=== PATIENT | female | born 1960 | race Caucasian/White ===

== ENCOUNTER 2022-06-17 08:17 | Observation (INO) ==
[2022-06-17] MEDS ORDERED: dilTIAZem HCl 5 MG/ML 5 ML VIAL IV STA (08:53)
[2022-06-17] MEDS ORDERED: STAT IV Infusion **Titration per Protocol STA (08:53)
--- NOTE | 2022-06-17 08:58 | Emergency Department Note ---
Impression & Plan Atrial fibrillation, new onset, Chest pain ED Provider Note NAME: TATIANA CHO AGE: 61 SEX: F : 1960 ARRIVES VIA: Walk-In INFORMANT: Patient ED PROVIDER(S): Otis Carbajal DO CHIEF COMPLAINT: palpitations HPI: Patient is a 61-year-old female who presents the ER for palpitations. She notes this is been going off and on for the past 4 months. It has been constant for at least the past 4 days. Denies any chest pain or shortness of breath. Does feel her heart racing. Gets very diaphoretic intermittently feels like she is going to pass out. No belly pain nausea vomiting or diarrhea. No dysuria urgency or frequency. No other exacerbating or remitting factors. PAST MEDICAL HISTORY:See Below PAST SURGICAL HISTORY:See Below FAMILY HISTORY:See Below SOCIAL HISTORY:See Below HOME MEDICATIONS:See Below ALLERGIES:See Below VITALS:See Below PHYSICAL EXAMINATION: GENERAL: Sitting up in bed, alert, well appearing, well nourished, no distress, non-toxic EYE EXAM: normal conjunctiva. OROPHARYNX: no exudate, no erythema, lips, buccal mucosa, and tongue normal and mucous membranes are moist NECK: supple, no nuchal rigidity, no adenopathy, non-tender LUNGS: Clear to auscultation. Normal chest wall mechanics HEART: Tachycardic, S1 normal and S2 normal ABDOMEN: abdomen soft, non-tender, normo-active bowel sounds, no masses, no rebound or guarding. UPPER EXTREMITIES: upper extremities are grossly normal. LOWER EXTREMITIES: No pitting edema. NEURO EXAM: Normal sensorium, cranial nerves II-XII grossly intact, normal speech, no gross weakness of arms, no gross weakness of legs. Triage Nursing notes reviewed. Limited review of prior medical records performed Vital Signs: reviewed and remarkable for tachy Differential diagnosis: Cardiac ischemia, aortic dissection, pulmonary embolism, pneumothorax, pneumoni a, pericarditis, myocarditis, esophageal rupture, GERD, cholecystitis, pancreatitis, musculoskeletal, as well as other pathologies. Labs show no significant leukocytosis or anemia. BMP shows no metabolic acidosis. LFTs bilirubin was unremarkable. Troponin was negative not indicative of ACS. Lip ase normal. COVID-negative. Chest x-ray without infiltrate per my read. EKG consistent with A. fib with RVR per my read. Patient was placed on Cardizem drip and given a bolus. Heart rate trended down. Updated bedside. Discussed with the hospitalist admitted for further work up with Dr. velasquez. Also discussed with Tj who is going to see the patient as well in regards to the patient presentation and treatment. ER treatment provided: See below MEDICAL DECISION MAKING: Patient is a 61-year-old female who presents the ER for the above-stated complaint. She currently does not have a primary care doctor/provider. No records to review. IV was established blood work was obtained. Consultation(s): As described above in [facility] ER treatment provided: See below Diagnostics interpreted by me: -ECG: A. fib rate of 142 Normal axis No PVCs QTC 449 -Cardiac Monitoring: An order was placed for continuous cardiac monitoring. The monitor shows a rate of 144 with Afib rhythm. -Laboratory studies:As stated above and show below. -Imaging studies: Portable AP upright 1 view of the chest per my read shows no focal infiltrate Procedures:none Critical Care: I have personally spent 32 minutes of critical care time in the direct management of this patient. This includes bedside care, interpretation of diagnostic studies, and testing, discussion with consultants, patient, and family members, and other required patient management activities. This 32 minutes is in excess of all separately billable procedures. Past Med/Surg History Medical History Dysuria Frostbite Malaise and fatigue Orthostatic hypotension Syncope and collapse Surgical History H/O ovarian cystectomy History of arthroscopic knee surgery torn meniscus right knee 2008 S/P total abdominal hysterectomy about 1991 for extensive endometriosis Family History Father Diabetes Heart disease Hypertension Lung disease Myocardial infarction Brother Diabetes Hypertension Denies family history of Ovarian cancer Prostate cancer Breast cancer Colorectal cancer Social History Smoking Status: Current every day smoker Age Started Using Tobacco: 39; packs per day: 0.5; Second Hand Exposure: Yes; Hx Alcohol Use: Yes Hx Substance Use: No Visual Impairment: No Limitations Hearing Ability: Normal marital status: marital status details: Currently engaged Current Living Situation: Spouse and Other Current Living Situation Comment: Lives with fiance current occupational status: employed 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 Feels Safe at Home: Yes Dental Care, Regularly: No Physical Activity Frequency: Daily Allergies Allergies Allergy/AdvReac Type Severity Reaction Status Date / Time latex Allergy Unknown rash Verified 06/17/22 11:24 SURGICAL BANDAGES Allergy Unknown RASH Uncoded 05/19/19 08:14 Home Meds Home Medications Medication Instructions Recorded Confirmed No Known Home Medications 06/17/22 06/17/22 Results & Data (ED) Vital Signs Vital Signs - 24 hr 06/17/22 08:30 06/17/22 09:00 06/17/22 09:02 Temperature 36.7 C Temperature Source Temporal Artery Scan Pulse Rate 102 H Pulse Rate [Apical] Pulse Rhythm Regular Pulse Rhythm [Apical] Pulse Strength Normal Respiratory Rate 20 Respiratory Effort / Characteristics Non-Labored Spontaneous Respiratory Depth Normal Respiratory Pattern Regular Blood Pressure Blood Pressure [Right Arm] Blood Pressure Mean Blood Pressure Mean [Right Arm] Blood Pressure Position [Right Arm] Pulse Oximetry 96 99 99 Oxygen Delivery Method Room Air Room Air Room Air Sepsis Recent Fever Within 48 Hours No Sepsis New/Unexplained Change in Mental Status N/A Sepsis Action Taken by Nursing No Action Required 06/17/22 09:01 06/17/22 09:30 06/17/22 10:00 Temperature Temperature Source Pulse Rate 142 H Pulse Rate [Apical] 97 H 120 H Pulse Rhythm Pulse Rhythm [Apical] Irregular Pulse Strength Respiratory Rate 15 18 16 Respiratory Effort / Characteristics Respiratory Depth Normal Normal Respiratory Pattern Blood Pressure 139/85 Blood Pressure [Right Arm] 127/89 126/91 Blood Pressure Mean 103 Blood Pressure Mean [Right Arm] 101 102 Blood Pressure Position [Right Arm] Lying Lying Pulse Oximetry 99 99 96 Oxygen Delivery Method Room Air Room Air Room Air Sepsis Recent Fever Within 48 Hours Sepsis New/Unexplained Change in Mental Status Sepsis Action Taken by Nursing 06/17/22 10:34 06/17/22 11:00 Temperature Temperature Source Pulse Rate Pulse Rate [Apical] 91 H 84 Pulse Rhythm Pulse Rhythm [Apical] Regular Pulse Strength Respiratory Rate 16 18 Respiratory Effort / Characteristics Respiratory Depth Normal Normal Respiratory Pattern Blood Pressure Blood Pressure [Right Arm] 116/83 112/84 Blood Pressure Mean Blood Pressure Mean [Right Arm] 94 93 Blood Pressure Position [Right Arm] Lying Pulse Oximetry 97 99 Oxygen Delivery Method Room Air Sepsis Recent Fever Within 48 Hours Sepsis New/Unexplained Change in Mental Status Sepsis Action Taken by Nursing Laboratory Data 06/17/22 08:53 06/17/22 08:53 Lab Results 06/17/22 06/17/22 Range/Units 08:53 08:53 WBC 9.34 (4.8-10.8) K/ul RBC 4.67 (3.93-5.22) M/uL Hgb 15.0 (12.0-16.0) g/dl Hct 44.3 (34.1-44.9) % MCV 94.9 (80.0-100.0) fL MCH 32.1 (25.0-34.0) pg MCHC 33.9 (32.0-36.0) g/dL RDW Std Deviation 48.4 H (36.4-46.3) fL RDW Coeff of Maria Elena 13.9 (11.5-14.5) % Plt Count 348 (130-400) K/uL MPV 9.3 L (9.4-12.3) fL Immature Gran % (Auto) 0.2 % Neut % (Auto) 68.4 % Lymph % (Auto) 21.0 % [place] % (Auto) 7.4 % Eos % (Auto) 1.8 % Baso % (Auto) 1.2 % Neut # (Auto) 6.39 (1.4-6.5) K/uL Lymph # (Auto) 1.96 (1.2-3.4) K/uL [place] # (Auto) 0.69 (0.24-0.82) K/uL Eos # (Auto) 0.17 (0-0.50) K/uL Baso # (Auto) 0.11 (0-0.2) K/uL Immature Gran # (Auto) 0.02 (0.00-0.02) K/uL Sodium 137 (136-145) mmol/L Potassium 4.1 (3.5-5.1) mmol/L Chloride 103 (98-107) mmol/L Carbon Dioxide 28 (21-32) mmol/L Anion Gap 6 (3-11) BUN 23 (6-23) mg/dl Creatinine 0.88 (0.6-1.2) mg/dl Est Cr Clr Drug Dosing 57.5 ml/min Est GFR ( Amer) 82.8 ml/min Est GFR (Non-Af Amer) 71.4 ml/min BUN/Creatinine Ratio 26.1 H (10-20) Glucose 114 H (70-99(Fasting)) mg/dl Calcium 8.9 (8.5-10.1) mg/dl Total Bilirubin 0.7 (0.2-1.0) mg/dl AST 21 (13-39) U/L ALT 11 (7-52) U/L Alkaline Phosphatase 66 (34-104) U/L Troponin I High Sens 3.2 (0-14) pg/ml Total Protein 7.5 (6.0-8.3) gm/dl Albumin 4.3 (3.4-5.0) gm/dl Globulin 3.2 (2.5-4.0) gm/dl Albumin/Globulin Ratio 1.3 (0.9-2) Lipase 18 (11-82) U/L Administered Medications Diltiazem HCl 125 mg/ Dextrose 125 mls @ 10 mls/hr IV .[id number] [facility]; Protocol Stop: 07/17/22 08:59 Last Titration: 06/17/22 10:09 Dose: 10 mg/hr, 10 mls/hr Documented By: ARCHIE Co-signed By: MARLENI Admin: 06/17/22 09:10 Dose: 5 mg/hr, 5 mls/hr Documented By: ARCHIE Co-signed By: MARLENI Heparin Sodium/Dextrose (Heparin Sodium/Dextrose) 25,000 units in 500 mls @ 19 mls/hr IV .Q24H [facility]; Protocol Stop: 07/17/22 11:44 Last Admin: 06/17/22 12:13 Dose: 950 units/hr, 19 mls/hr Documented By: MARLENI Co-signed By: ARCHIE Discontinued Medications Diltiazem HCl (Diltiazem Hcl 5 Mg/Ml 5 Ml Vial) 10 mg IV NOW STA Stop: 06/17/22 08:54 Last Admin: 06/17/22 09:09 Dose: 10 mg Documented By: ARCHIE Co-signed By: MARLENI Miscellaneous (Stat Iv Infusion Titration Per Protocol) 1 each N/A NOW STA Stop: 06/17/22 08:54 Last Admin: 06/17/22 09:12 Dose: Not Given Documented By: ARCHIE Imaging Data Radiologist's Impression: Chest X-Ray 06/17/22 08:41 XR chest 1V portable CLINICAL HISTORY: Chest pain, nonspecific TECHNIQUE: Single frontal radiograph of the chest was obtained. Comparison: None available at the time of this dictation. FINDINGS: No lines and tubes are seen. The cardiomediastinal silhouette is normal. The lungs are clear. No evidence of pleural effusion or pneumothorax. IMPRESSION: No acute chest disease. ACT 112: Negative or not required by law. Electronically signed by: Joe Rdz M.D. 06/17/2022 9:19 AM Discharge Plan Visit Data Chief Complaint: Cardiac Assessment Stated Complaint: CHEST PAIN, PALPITATIONS, SWEATS ED Provider: Otis Carbajal Discharge Problem: Atrial fibrillation, new onset, Chest pain Patient Disposition: Admitted As Inpatient Discharge Instructions Interventions: ED Discharge Assessment Last Done: 06/17/22 12:35
[2022-06-17] MEDS ORDERED: dilTIAZem HCL 125 MG in DEXTROSE 5% 100 ML IV SCH (09:00)
[2022-06-17 09:03] LABS: Basophils # (auto) 0.11 K/uL (0-0.2); Basophils % (auto) 1.2 %; Eosinophils # (auto) 0.17 K/uL (0-0.50); Eosinophils % (auto) 1.8 %; Hematocrit (blood only) 44.3 % (34.1-44.9); Immature Granulocytes # (auto) 0.02 K/uL (0.00-0.02); Immature Granulocytes % (auto) 0.2 %; Lymphocytes # (auto) 1.96 K/uL (1.2-3.4); Mean Corpuscular Hemoglobin 32.1 pg (25.0-34.0); Mean Corpuscular Hgb Conc 33.9 g/dL (32.0-36.0); Mean Corpuscular Volume 94.9 fL (80.0-100.0); Mean Platelet Volume 9.3 fL (9.4-12.3); Monocytes # (auto) 0.69 K/uL (0.24-0.82); Monocytes % (auto) 7.4 %; Neutrophils # (auto) 6.39 K/uL (1.4-6.5); Neutrophils % (auto) 68.4 %; Platelet Count 348 K/uL (130-400); RDW Coefficient of Variation 13.9 % (11.5-14.5); RDW Standard Deviation 48.4 fL (36.4-46.3); Red Blood Count 4.67 M/uL (3.93-5.22); White Blood Count 9.34 K/ul (4.8-10.8)
--- NOTE | 2022-06-17 09:20 | XRay Report ---
XR chest 1V portable CLINICAL HISTORY: Chest pain, nonspecific TECHNIQUE: Single frontal radiograph of the chest was obtained. Comparison: None available at the time of this dictation. FINDINGS: No lines and tubes are seen. The cardiomediastinal silhouette is normal. The lungs are clear. No evid ence of pleural effusion or pneumothorax. IMPRESSION: No acute chest disease. ACT 112: Negative or not required by law. Electronically signed by: Joe Rdz M.D. 06/17/2022 9:19 AM
[2022-06-17 09:25] LABS: Albumin Globulin Ratio 1.3 (0.9-2); Albumin Level 4.3 gm/dl (3.4-5.0); BUN Creatinine Ratio 26.1 (10-20); Bilirubin,Total 0.7 mg/dl (0.2-1.0); Calcium 8.9 mg/dl (8.5-10.1); Creatinine Clr Calc Pharmacy 57.5 ml/min; Est GFR (African American) 82.8 ml/min; Est GFR (Non-African American) 71.4 ml/min; Globulin 3.2 gm/dl (2.5-4.0); Potassium 4.1 mmol/L (3.5-5.1); Total Protein 7.5 gm/dl (6.0-8.3)
[2022-06-17 09:29] LABS: Troponin I High Sensitivity 3.2 pg/ml (0-14)
[2022-06-17] MEDS ORDERED: Heparin IV Adult Wt-Based Standard *NO* Bolus Protocol IV ONE (11:20)
[2022-06-17] MEDS ORDERED: HEPARIN SODIUM/DEXTROSE 25,000 UNITS/500 ML BAG IV SCH (11:45)
--- NOTE | 2022-06-17 12:15 | History & Physical Report ---
Date of Service June 17, 2022 Assessment & Plan (1) Atrial fibrillation, new onset: Plan: 61-year-old female without prior significant past medical history presenting in new onset A. fib with presyncopal symptoms and associated diaphoresis requiring inpatient evaluation for medication adjustments and cardiac work-up prior to discharge. * Presents with A. fib with RVR on EKG. She has associated diaphoresis and presyncope. Per the patient, she has had intermittent symptoms for the last at least 4 months. She states that her symptoms typically last about 1 to 2 hours and resolved. Today symptoms are more intense which prompted her visit today. * Patient symptoms likely represent paroxysmal A. fib. * Initially received diltiazem bolus followed by drip. Rate significantly improved. At the time of my evaluation, the patient converted to normal sinus rhythm. * She had received heparin bolus and drip prior to my evaluation. In conversation with the patient, she is extremely active and works multiple jobs. Additionally, she has not been consistent with previous primary care visits, etc. I am uncertain the patient will do well with any anticoagulation therapy, frankly, but she may do better with a NOAC. [id number] 2 score 1. Will defer to cardiology and appreciate their input. * Remains on low-dose diltiazem drip. It is with hopes that the patient can be transitioned to an oral beta-devonte with rate control which may be more tolerable for the patient in the long run. * Discussed that she will need to follow-up with PCP and cardiology postdischarge. * Encourage smoking cessation. * Echo to be obtained. * Troponins to be trended. * Monitor on telemetry. * Appreciate cardiology consultation. (2) Paroxysmal atrial fibrillation: Plan: * Please see above (3) Tobacco abuse: Plan: * Encourage smoking cessation. History of Present Illness Chief Complaint: Palpitations, Dizziness Primary Care Provider: NO PCP Patient is a pleasant 61-year-old female with no reported significant past medical history who presented to the emergency department today with palpitations and dizziness as well as diaphoresis which occurred suddenly this morning after having a cigarette. She admits that she has been experiencing intermittent palpitations with diaphoresis for the last 4 months or so. She reports that these episodes typically last approximately 1 to 2 hours and then antony without intervention. She has noticed that after activity, she has had palpitations to the point where she has felt as though she was going to passout. She has not been evaluated to this point. Unfortunately, today, her significant other found her bent over and presyncopal with the onset of palpitations which prompted visit to the emergency department today. She reports that her symptoms have improved with medication in the emergency department. She denies any prior evaluation for this in the past. While I was in the room, the patient converted to normal sinus rhythm. She reports resolved symptoms to this point. Patient's EKG on presentation demonstrated A. fib with RVR with a rate in the 140s. Troponin was not elevated. No significant electrolyte derangements noted. Chest x-ray without acute findings. Patient has an approximate [id number] history of smoking. She drinks coffee daily. Occasional alcohol use. No other stimulant use. Allergies Allergy/AdvReac Type Severity Reaction Status Date / Time latex Allergy Unknown rash Verified 06/17/22 11:24 SURGICAL BANDAGES Allergy Unknown RASH Uncoded 05/19/19 08:14 Home Medications Medication Instructions Recorded Confirmed Type metoprolol tartrate 25 mg tablet 25 mg PO BID #60 tabs 06/17/22 Rx Past Med/Surg History Medical History Dysuria Frostbite Malaise and fatigue Orthostatic hypotension Syncope and collapse Surgical History H/O ovarian cystectomy History of arthroscopic knee surgery torn meniscus right knee 2008 S/P total abdominal hysterectomy about 1991 for extensive endometriosis Family History Father Diabetes Heart disease Hypertension Lung disease Myocardial infarction Brother Diabetes Hypertension Denies family history of Ovarian cancer Prostate cancer Breast cancer Colorectal cancer Social History Smoking Status: Current every day smoker Age Started Using Tobacco: 39; packs per day: 0.5; Second Hand Exposure: No; Hx Alcohol Use: No Hx Substance Use: No Preferred Language: Telugu Communication Ability: Effective Visual Impairment: No Limitations Hearing Ability: Normal 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 All else were negative. Physical Exam Physical Exam: VITAL SIGNS - Vital signs and nursing notes were reviewed. GENERAL - 61-year-old female appearing her stated age who is in no acute distress. Communicates well with provider and answers questions appropriately. HEAD - NC/AT. EYES - PERRL with EOMI bilaterally. Sclera anicteric. EARS - No deformities of external structures noted on gross examination bilaterally. NOSE - Midline and without cyanosis. No epistaxis or purulent drainage noted. MOUTH/OROPHARYNX - Without perioral cyanosis. NECK - Neck with FROM. LUNGS - Chest wall symmetric without accessory muscle use, intercostals retractions, or central cyanosis. Normal vesicular breath sounds CTA B/L. No wheezes, rales, or rhonchi appreciated. CARDIAC - RRR with S1/S2. No murmur, rubs, or gallops appreciated. No reproducible tenderness to palpation appreciated over the anterior chest wall. ABDOMEN - Abdominal contour flat without pulsations or visible masses. BS normoactive all four quadrants. No tenderness, palpable masses, hepatosplenomegaly, or ascites noted. EXTREMITIES - No clubbing or peripheral cyanosis. No pretibial edema present. +3/5 radial and dorsalis pedis pulses palpated throughout. +5/5 strength noted in UE/LE bilaterally. NEUROLOGIC - Cranial nerves II through XII grossly intact. Sensory intact to light touch throughout. PSYCH - A&Ox3 and cooperates fully with examiner. Pt is very pleasant and interacts well with examiner. Results & Data Results & Data ([facility]) Vital Signs (Past 12 Hours) Vital Signs Temp Pulse Pulse Resp BP BP Pulse Ox 06/17/22 11:00 84 18 112/84 99 06/17/22 10:34 91 H 16 116/83 97 06/17/22 10:00 120 H 16 126/91 96 06/17/22 09:30 97 H 18 127/89 99 06/17/22 09:01 142 H 15 139/85 99 06/17/22 09:02 99 01/03/23 09:00 99 06/17/22 08:30 36.7 C 102 H 20 96 O2 Del Method 06/17/22 11:00 Room Air 06/17/22 10:34 06/17/22 10:00 Room Air 06/17/22 09:30 Room Air 06/17/22 09:01 Room Air 06/17/22 09:02 Room Air 06/17/22 09:00 Room Air 06/17/22 08:30 Room Air ECG Indication: diaphoresis and palpitations Rate (beats per minute): 142 Findings: + other (A fib w/ RVR) Comparison ECG Date: no prior available Code Status & VTE Plan Code Status FULL CODE VTE Prophylaxis Plan VTE Prophylaxis will be ordered: Yes Supervising Physician Co-Signing Physician Notes Patient seen and examined at bedside. During face to face encounter, I performed a physical examination and clinical history. Patient will be admitted for Atrial fibrillation and RVR. Will likely place on diltiazem drip. I discussed plan of care with APC Bashir and patient. I reviewed above note and agree with it. PG Care Time/CCT Total # of Minutes Spent Total Time Spent with Patient: Total time spent is greater than 50% in coordination of care (as documented) at patient's floor/unit and/or counseling patient: Coding Level of Care Code 79148 INT INP/OBS CARE 375MIN Diagnoses Atrial fibrillation, new onset I48.91 Paroxysmal atrial fibrillation I48.0 Tobacco abuse Z72.0 Time Spent (min) 35
[2022-06-17 12:30] LABS: Partial Thromboplastin Ratio 0.9; Partial Thromboplastin Time 25.9 Seconds (21.0-31.0)
--- NOTE | 2022-06-17 12:54 | Electrocardiogram Report ---
Test Reason : Blood Pressure : / mmHG Vent. Rate : 142 BPM Atrial Rate : 156 BPM P-R Int : 000 ms QRS Dur : 066 ms QT Int : 292 ms P-R-T Axes : 000 054 016 degrees QTc Int : 449 ms Poor data quality, interpretation may be adversely affected Atrial fibrillation with rapid ventricular response Poor R wave progression, consider anterior [place] vs. lead placement vs. LVH Abnormal ECG When compared with ECG of 09-JUL-2011 09:09, Atrial fibrillation has replaced Sinus rhythm Vent. rate has increased BY 60 BPM T wave inversion now evident in Inferior leads T wave amplitude has decreased in Anterior leads Confirmed by Ahmet Rivera ([id number]) on 06/17/2022 12:54:07 PM Referred By: REFERRED SELF Confirmed By:Ahmet Rivera
--- NOTE | 2022-06-17 13:15 | Electrocardiogram Report ---
Test Reason : Blood Pressure : / mmHG Vent. Rate : 064 BPM Atrial Rate : 064 BPM P-R Int : 138 ms QRS Dur : 072 ms QT Int : 398 ms P-R-T Axes : 055 040 044 degrees QTc Int : 410 ms Poor data quality, interpretation may be adversely affected Normal sinus rhythm Possible Left atrial enlargement Cannot rule out Anterior infarct (cited on or before 17-JUN-2022) Abnormal ECG When compared with ECG of 17-JUN-2022 08:50, (unconfirmed) Sinus rhythm has replaced Atrial fibrillation Vent. rate has decreased BY 78 BPM Nonspecific T wave abnormality has replaced inverted T waves in Inferior leads Confirmed by Ahmet Rivera ([id number]) on 06/17/2022 1:15:26 PM Referred By: REFERRED SELF Confirmed By:Ahmet Rivera
[2022-06-17] MEDS ORDERED: METOPROLOL TARTRATE 25 MG TAB PO SCH (14:00)
--- NOTE | 2022-06-17 15:42 | Cardiology Consultation ---
Date of Consultation June 17, 2022 Assessment & Plan (1) Paroxysmal atrial fibrillation: -Troponin negative X 1, no CP at this time. -A fib seen on EKG was converted back to NSR with diltiazem. -Patient symptoms resolved once A fib was converted back to sinus rhythm. -Can switch diltiazem to oral metoprolol 25mg BID. No rhythm control needed at this time due to patient converting back to NSR with rate control only. -[id number] 2 score 1, which is low risk for stroke in a female. No need for long-term anticoagulation at this time. -Encouraged smoking cessation. -Patient can be D/C'ed from a cardio stand point. F/u as outpatient in 1-2 weeks. Plan Thank you for allowing me to participate in the care of your patient. -Dr. Fran Ramírez PGY1 Supervising Physician Co-Signing Physician Notes Patient seen and examined Agree with Dr. Ramírez's assessment and plan. Impression/plan: 1. Paroxysmal atrial fibrillation - discharge metoprolol tartrate 25 mg b.i.d. - no anticoagulation necessary (CHADSVasc score of 1 due to gender). - stable for hospital discharge. - I will make arrangements for follow-up. History of Present Illness Reason for Consultation: new onset A fib Attending Physician: Hiro Almazan History of Present Illness Patient is a 61 y/o female with no significant past medical and not currently taking any medications who presented to the ED with heart palpations. Patient has been episodes of heart palpations since November. She currently has about 2-3 episodes a week that last anywhere between a couple of seconds to 1 hour long. This most recent episode happened overnight after she was doing strenuous activity the day before. She went out to have a cigarette and she started to have pounding heart palpations and diaphoresis. She did feel like she was going to pass out but did not have any LOC. She has slight SOB when these episodes occur but normally has no SOB at rest or on exertion. She denies any CP. Patient was found to be in A fib with RVR with rates in the 140s in the ED. The patient converted to NSR with diltiazem in the ED. Patient was seen in the ED. She currently is in NSR and has no issues or concerns. She denies any CP, SOB, N/V, or ab pain. Patient has smoke a pack every 2 days since she has been in her 30's. Approximately a 64-[id number]-[id number] history of smoking. She drinks coffee daily. Socially uses alcohol (2-3 beers 1-2x a month). No other stimulant use. Significant family cardiac history: father: VA @ 56 and 65 y/o, Paternal father: [facility] 62 y/o, Mother: HTN Allergies Allergy/AdvReac Type Severity Reaction Status Date / Time latex Allergy Unknown rash Verified 06/17/22 11:24 SURGICAL BANDAGES Allergy Unknown RASH Uncoded 05/19/19 08:14 Home Medications Medication Instructions Recorded Confirmed Type No Known Home Medications 06/17/22 06/17/22 History Patient History Medical History Dysuria Frostbite Malaise and fatigue Orthostatic hypotension Syncope and collapse Surgical History H/O ovarian cystectomy History of arthroscopic knee surgery torn meniscus right knee 2008 S/P total abdominal hysterectomy about 1991 for extensive endometriosis Family History Father Diabetes Heart disease Hypertension Lung disease Myocardial infarction Brother Diabetes Hypertension Denies family history of Ovarian cancer Prostate cancer Breast cancer Colorectal cancer Social History Smoking Status: Current every day smoker Age Started Using Tobacco: 39; packs per day: 0.5; Second Hand Exposure: Yes; Hx Alcohol Use: Yes Hx Substance Use: No Preferred Language: French Communication Ability: Effective Visual Impairment: No Limitations Hearing Ability: Normal Clinical Training Coordinator Required: No Beliefs That Will Affect Care: None marital status: marital status details: Currently engaged Current Living Situation: Significant Other Current Living Situation Comment: Lives with fiance current occupational status: employed 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 Other Information That Helps Us Care for You: No Feels Safe at Home: Yes Safety Concerns: Feels Safe At This Time Dental Care, Regularly: No Physical Activity Frequency: Daily Assistive Devices: Glasses Review of Systems Review of Systems: All systems reviewed & are unremarkable except as noted in HPI & below Physical Exam Constitutional: WD/WN, vitals as above Eyes: PERRL, conjunctivae normal, anicteric sclerae ENMT: external ear and nose normal, oropharynx normal Respiratory: normal respiratory effort, lungs clear to auscultation Cardiovascular: RRR, no murmur, no edema Gastrointestinal (Abdomen): normal bowel sounds, soft, nontender, no hepatosplenomegaly Musculoskeletal: no cyanosis or clubbing, extremities motor strength 5/5 Skin: no rashes, warm and dry Psychiatric: A+Ox3, euthymic affect Results & Data ([facility]) Vital Signs (Past 12 Hours) Vital Signs Temp Pulse Pulse Resp BP BP Pulse Ox 06/17/22 14:06 66 16 102/68 97 06/17/22 12:35 68 18 97 06/17/22 12:06 72 16 134/85 99 06/17/22 11:00 84 18 112/84 99 06/17/22 10:34 91 H 16 116/83 97 06/17/22 10:00 120 H 16 126/91 96 06/17/22 09:30 97 H 18 127/89 99 06/17/22 09:01 142 H 15 139/85 99 06/17/22 09:02 99 06/17/22 09:00 99 06/17/22 08:30 36.7 C 102 H 20 96 O2 Del Method 06/17/22 14:06 Room Air 06/17/22 12:35 Room Air 06/17/22 12:06 Room Air 06/17/22 11:00 Room Air 06/17/22 10:34 06/17/22 10:00 Room Air 06/17/22 09:30 Room Air 06/17/22 09:01 Room Air 06/17/22 09:02 Room Air 06/17/22 09:00 Room Air 06/17/22 08:30 Room Air PG Care Time/CCT Total # of Minutes Spent Total Time Spent with Patient: Total time spent is greater than 50% in coordination of care (as documented) at patient's floor/unit and/or counseling patient: Coding Level of Care Code 62845 Office/OBS Consult Lvl 4 Diagnoses Paroxysmal atrial fibrillation I48.0 Resident Activity Tracking Resident Involvement: Resident Care Provided Care Provided: Adult Hospital Medicine
--- NOTE | 2022-06-17 16:03 | XCELERA ---
[id number]
--- NOTE | 2022-06-17 16:04 | Discharge Summary ---
Date of Service June 17, 2022 Admission HPI Per Admitting Provider Patient is a pleasant 61-year-old female with no reported significant past medical history who presented to the emergency department today with palpitations and dizziness as well as diaphoresis which occurred suddenly this morning after having a cigarette. She admits that she has been experiencing intermittent palpitations with diaphoresis for the last 4 months or so. She reports that these episodes typically last approximately 1 to 2 hours and then antony without intervention. She has noticed that after activity, she has had palpitations to the point where she has felt as though she was going to passout. She has not been evaluated to this point. Unfortunately, today, her significant other found her bent over and presyncopal with the onset of palpitations which prompted visit to the emergency department today. She reports that her symptoms have improved with medication in the emergency department. She denies any prior evaluation for this in the past. While I was in the room, the patient converted to normal sinus rhythm. She reports resolved symptoms to this point. Patient's EKG on presentation demonstrated A. fib with RVR with a rate in the 140s. Troponin was not elevated. No significant electrolyte derangements noted. Chest x-ray without acute findings. Patient has an approximate 26-[id number]-fhfg history of smoking. She drinks coffee daily. Occasional alcohol use. No other stimulant use. Principal Diagnosis a fib RVR Discharge Exam GENERAL - 61-year-old female appearing her stated age who is in no acute distress. HEAD - NC/AT. EYES - PERRL with EOMI bilaterally. Sclera anicteric. EARS - No deformities of external structures noted on gross examination bilaterally. NOSE - Midline and without cyanosis. No epistaxis or purulent drainage noted. MOUTH/OROPHARYNX - Without perioral cyanosis. NECK - Neck with FROM. LUNGS - Chest wall symmetric without accessory muscle use, intercostals retractions, or central cyanosis. Normal vesicular breath sounds CTA B/L. No wheezes, rales, or rhonchi appreciated. CARDIAC - RRR with S1/S2. No murmur, rubs, or gallops appreciated. No reprod ucible tenderness to palpation appreciated over the anterior chest wall. ABDOMEN - Abdominal contour flat without pulsations or visible masses. BS normoactive all four quadrants. No tenderness, palpable masses, hepatosplenomegaly, or ascites noted. EXTREMITIES - No clubbing or peripheral cyanosis. No pretibial edema present. +3/5 radial and dorsalis pedis pulses palpated throughout. +5/5 strength noted in UE/LE bilaterally. NEUROLOGIC - Cranial nerves II through XII grossly intact. Sensory intact to light touch throughout. PSYCH - A&Ox3 and cooperates fully with examiner. Pt is very pleasant and interacts well with examiner. Discharge Data Allergies Allergy/AdvReac Type Severity Reaction Status Date / Time latex Allergy Unknown rash Verified 06/17/22 11:24 SURGICAL BANDAGES Allergy Unknown RASH Uncoded 05/19/19 08:14 Consultations 06/17/22 10:19 ED Decision to Admit Stat 06/17/22 11:20 Consult Cardiology Stat Hospital Course (1) Atrial fibrillation, new onset: On admission: 61-year-old female without prior significant past medical history presenting in new onset A. fib with presyncopal symptoms and associated diaphoresis requiring inpatient evaluation for medication adjustments and cardiac work-up prior to discharge. * Presents with A. fib with RVR on EKG. She has associated diaphoresis and presyncope. Per the patient, she has had intermittent symptoms for the last at least 4 months. She states that her symptoms typically last about 1 to 2 hours and resolved. Today symptoms are more intense which prompted her visit today. * Patient symptoms likely represent paroxysmal A. fib. * Initially received diltiazem bolus followed by drip. Rate significantly improved. At the time of my evaluation, the patient converted to normal sinus rhythm. * She had received heparin bolus and drip prior to my evaluation. In conversation with the patient, she is extremely active and works multiple jobs. Additionally, she has not been consistent with previous primary care visits, etc. I am uncertain the patient will do well with any anticoagulation therapy, frankly, but she may do better with a NOAC. [id number] 2 score 1. Will defer to cardiology and appreciate their input. * Remains on low-dose diltiazem drip. It is with hopes that the patient can be transitioned to an oral beta-devonte with rate control which may be more tolerable for the patient in the long run. * Discussed that she will need to follow-up with PCP and cardiology postdischarge. * Encourage smoking cessation. * Echo to be obtained. * Troponins to be trended. * Monitor on telemetry. * Appreciate cardiology consultation. Later in hospital stay, HR returned to sinus rhythm, Discussed with cardiology, patient can be discharged, discharge metoprolol tartrate 25 mg b.i.d. no anticoagulation necessary (CHADSVasc score of 1 due to gender). (2) Paroxysmal atrial fibrillation: * Please see above (3) Tobacco abuse: * Encourage smoking cessation. Total Time Total Time Spent Total Time Spent (In Minutes): 32 Discharge Plan Discharge Items Patient Disposition: Home - Self-Care Reason For Visit: CHEST PAIN, PALPITATIONS, SWEATS Discharge Diagnosis: a fib Activity: Resume your previous activity Non-emergency contact: Primary Care Provider Call non-emergency contact if: you have any medication questions Follow-up/Referrals: PCP,NO [Primary Care Provider] - Diet: Regular Addtl Attending Provider Instructions: Lifestyle Changes: * Maintain a healthy weight. * Cut back on salt. * Limit canned, dried, packaged, and fast foods. * Don't add salt to your food. * Season foods with herbs instead of salt when you cook. * Break the smoking habit. Enroll in a stop-smoking program to improve your chances of success. * Limit fatty foods. Follow Up: It is important for you to keep your follow up appointments with your medical provider. Recommend followup with Publicity Director. They will call you later in the month for an appointment. Please followup with your PCP in 1-2 weeks. Pending Studies at Discharge: No Stand-Alone Forms: My [facility] [employer], Smoking Cessation Medications and DC Order Prescriptions: New metoprolol tartrate 25 mg Tablet 25 mg PO BID Qty: 60 0RF Discharge Orders: Discharge Order (Routine); Ordered 06/17/22 Ordered By: Hiro Almazan Admission Data Admit Date/Time: 06/17/22 11:05 Attending Provider: Hiro Almazan Admit Provider: Hiro Almazan Primary Care Provider: PCP,NO Other Providers: Joe Rodríguez Other Interventions: Discharge Summary Assessment (RN) Last Done: 06/17/22 16:27 Coding Level of Care Code INP/OBS EV SAME DAY LV 3,85MIN Diagnoses Atrial fibrillation, new onset I48.91 Paroxysmal atrial fibrillation I48.0 Tobacco abuse Z72.0
== END 2022-06-17 16:35 | disposition home or self-care (01) ==
LOC: ED 08:17 → INTOOBSV 11:05 → EDINP 11:05
DX: R07.9 Chest pain, unspecified; I48.0 Paroxysmal atrial fibrillation; F17.290 Nicotine dependence, other tobacco product, uncomplicated; Z91.040 Latex allergy status

== ENCOUNTER 2024-10-07 09:41 | Inpatient (IN) ==
--- NOTE | 2024-10-07 10:08 | Emergency Department Note ---
Impression & Plan Atrial fibrillation with rapid ventricular response, Acute systolic CHF (congestive heart failure), Shortness of breath, Pleural effusion ED Provider Note NAME: TATIANA CHO AGE: 63 SEX: F : 1960 ARRIVES VIA: Walk-In INFORMANT: Patient ED PROVIDER(S): Otis Carbajal DO CHIEF COMPLAINT: Cough, shortness of breath HPI: Patient is a 63-year-old female with past medical history of tobacco abuse and paroxysmal A-fib that presents to the ER for shortness of breath. She notes symptoms have been present for the past 2 and half weeks. They have gotten significantly worse. She saw her PCP and they did not know what was wrong and sent her in here. She does not feel her heart racing. She admits to a 5 pound weight gain recently. No history of heart failure. Denies any headache or change in vision. No chest pain but admits to shortness of breath. No dysuria, urgency, or frequency. No other exacerbating or remitting factors. ADDITIONAL HISTORY OBTAINED: Per HPI Chronic Medical/Social Conditions Affecting Care: Per HPI PAST MEDICAL HISTORY:See Below PAST SURGICAL HISTORY:See Below FAMILY HISTORY:See Below SOCIAL HISTORY:See Below HOME MEDICATIONS:See Below ALLERGIES:See Below VITALS:See Below PHYSICAL EXAMINATION: GENERAL: Sitting up in bed, alert, dyspneic with conversation, mild distress EYE EXAM: normal conjunctiva. PERRL and EOM's grossly intact. OROPHARYNX: no exudate, no erythema, lips, buccal mucosa, and tongue normal and mucous membranes are moist NECK: supple, no nuchal rigidity, no adenopathy, non-tender LUNGS: Clear to auscultation. Normal chest wall mechanics HEART: Tachycardic irregular regular, S1 normal and S2 normal ABDOMEN: abdomen soft, non-tender, normo-active bowel sounds, no masses, no rebound or guarding. BACK: Back is symmetrical on inspection and there is no deformity, no midline tenderness, no CVA tenderness. SKIN: no rashes and no bruising UPPER EXTREMITIES: upper extremities are grossly normal. LOWER EXTREMITIES: Mild pitting edema in the bilateral lower extremities NEURO EXAM: Normal sensorium, cranial nerves II-XII grossly intact, normal speech, no gross weakness of arms, no gross weakness of legs. MEDICAL DECISION MAKING: Patient is a 63-year-old female who presents to the ER with a past medical history of paroxysmal A-fib for shortness of breath. IV was established and blood work was obtained. Upon presentation patient's heart rate was in the 160s. He was irregular. Labs show no significant leukocytosis or anemia. INR unremarkable. BMP along LFTs bilirubin and lipase was unremarkable. Troponin was negative. Influenza COVID and RSV were negative. Chest x-ray with bilateral pleural effusions. Patient has no history of heart failure was placed on a Cardizem drip and given a Cardizem bolus. Heart rate trended down to 90s to 110. Patient was updated at bedside. She was discussed with the hospitalist admitted for further workup. Consults/Care Managements Discussions: Per [facility] Triage Nursing notes reviewed. Limited review of prior medical records performed Vital Signs: reviewed and remarkable for tachycardic Differential diagnosis: Differential diagnoses includes but is not limited to pneumonia, bronchitis, COPD/Asthma exacerbation, pneumothorax, pulmonary embolism, congestive heart failure, acute coronary syndrome ER treatment provided: See below Diagnostics interpreted by me include EKG and cardiac monitoring as listed below: -Cardiac Monitoring: An order was placed for continuous cardiac monitoring. The monitor shows a rate of 145 with sinus rhythm. -ECG: A-fib RVR rate of 155 Normal axis No PVCs QTc 437 -Laboratory studies:Interpreted by me as stated above in [facility] and shown below. Imaging studies: Xrays: As interpreted by me: Portable AP upright 1 view of the chest shows bilateral pleural effusions CTs show: none Procedures:none Critical Care: I have personally spent 45 minutes of critical care time in the direct management of this patient. This includes bedside care, interpretation of diagnostic studies, and testing, discussion with consultants, patient, and family members, and other required patient management activities. This 45 minutes is in excess of all separately billable procedures. Past Med/Surg History Problem List (Updated 10/07/24 @ 13:36 by Otis Carbajal DO) Pleural effusion (Acute) Shortness of breath (Acute) Left ventricular dysfunction Acute systolic CHF (congestive heart failure) (Acute) Atrial fibrillation with rapid ventricular response (Acute) Tobacco abuse Paroxysmal atrial fibrillation Atrial fibrillation, new onset (Acute) Medical History Orthostatic hypotension Frostbite Surgical History H/O ovarian cystectomy History of arthroscopic knee surgery S/P total abdominal hysterectomy Family History Father Diabetes Heart disease Hypertension Lung disease Myocardial infarction Brother Diabetes Hypertension Denies family history of Ovarian cancer Prostate cancer Breast cancer Colorectal cancer Social History (Updated 04/27/23 @ 14:43 by Samaria Gonzalez LPN) Smoking Status: Current some day smoker Tobacco Type: Cigarettes Age Started Using Tobacco: 39; packs per day: 0.5; Second Hand Exposure: No; Do You Dip or Chew Tobacco: No; Hx Alcohol Use: No Hx Substance Use: No Preferred Language: Tunisian Communication Ability: Effective Visual Impairment: No Limitations Hearing Ability: Normal Emergency Veterinary Technician Required: No Beliefs That Will Affect Care: Alevism marital status: Single marital status details: Currently engaged Current Living Situation: Spouse Current Living Situation Comment: Lives with fiance current occupational status: employed 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 Feels Safe at Home: Yes Diet: Weight Watchers Dental Care, Regularly: No Physical Activity Frequency: Daily Seatbelt Use: always Assistive Devices: Glasses Allergies Allergies Allergy/AdvReac Type Severity Reaction Status Date / Time latex Allergy Unknown rash Verified 10/07/24 08:13 SURGICAL BANDAGES Allergy Unknown RASH Uncoded 10/07/24 08:13 Home Meds Home Medications Medication Instructions Recorded Confirmed aspirin 81 mg tablet,delayed 81 mg PO DAILY 06/27/22 10/07/24 release ([facility]) coenzyme Q10 10 mg capsule (Co 10 mg PO BID 01/06/24 10/07/24 Q-10) Previous Rx's Medication Instructions Recorded metoprolol tartrate 25 mg tablet 25 mg PO BID 90 days #180 tabs 07/20/23 Results & Data (ED) Vital Signs Vital Signs - 24 hr 10/07/24 09:42 10/07/24 10:01 10/07/24 10:05 Temperature 36.4 C L Temperature Source Temporal Artery Scan Pulse Rate 135 H 146 H Pulse Rate from SpO2 Sensor Respiratory Rate 24 22 Respiratory Effort / Characteristics Non-Labored Spontaneous Respiratory Depth Normal Respiratory Pattern Regular Blood Pressure 121/98 122/84 Blood Pressure Mean 105 99 Pulse Oximetry 97 96 96 Oxygen Delivery Method Room Air Room Air Sepsis Recent Fever Within 48 Hours No Sepsis New/Unexplained Change in Mental Status N/A Sepsis Action Taken by Nursing Physician Notified 10/07/24 10:08 10/07/24 10:30 10/07/24 10:41 Temperature Temperature Source Pulse Rate 143 H 117 H Pulse Rate from SpO2 Sensor Respiratory Rate 20 Respiratory Effort / Characteristics Respiratory Depth Respiratory Pattern Blood Pressure 109/93 Blood Pressure Mean 94 Pulse Oximetry 95 94 Oxygen Delivery Method Room Air Sepsis Recent Fever Within 48 Hours Sepsis New/Unexplained Change in Mental Status Sepsis Action Taken by Nursing 10/07/24 11:00 10/07/24 11:32 10/07/24 12:00 Temperature Temperature Source Pulse Rate 131 H 113 H 120 H Pulse Rate from SpO2 Sensor Respiratory Rate 20 22 20 Respiratory Effort / Characteristics Respiratory Depth Respiratory Pattern Blood Pressure 122/94 114/97 118/90 Blood Pressure Mean 101 102 99 Pulse Oximetry 91 96 95 Oxygen Delivery Method Sepsis Recent Fever Within 48 Hours Sepsis New/Unexplained Change in Mental Status Sepsis Action Taken by Nursing 10/07/24 13:00 Temperature Temperature Source Pulse Rate 116 H Pulse Rate from SpO2 Sensor 109 H Respiratory Rate 22 Respiratory Effort / Characteristics Respiratory Depth Respiratory Pattern Blood Pressure 116/94 Blood Pressure Mean 101 Pulse Oximetry 90 Oxygen Delivery Method Sepsis Recent Fever Within 48 Hours Sepsis New/Unexplained Change in Mental Status Sepsis Action Taken by Nursing Laboratory Data 10/07/24 10:00 10/07/24 10:00 Lab Results 10/07/24 10/07/24 10/07/24 Range/Units 10:00 11:51 12:26 WBC 9.80 (4.8-10.8) K/ul RBC 4.93 (4.20-5.40) M/uL Hgb 15.8 (12.0-16.0) g/dl Hct 48.0 H (37.0-47.0) % MCV 97.4 (80.0-100.0) fL MCH 32.0 (25.0-34.0) pg MCHC 32.9 (32.0-36.0) g/dL RDW Std Deviation 54.4 H (36.4-46.3) fL RDW Coeff of Maria Elena 15.1 H (11.5-14.5) % Plt Count 267 (130-400) K/uL MPV 11.3 (9.4-12.4) fL Immature Gran % (Auto) 0.3 % Neut % (Auto) 66.1 % Lymph % (Auto) 24.8 % [place] % (Auto) 7.0 % Eos % (Auto) 0.6 % Baso % (Auto) 1.2 % Neut # (Auto) 6.47 (1.40-6.50) K/uL Lymph # (Auto) 2.43 (1.20-3.40) K/uL [place] # (Auto) 0.69 H (0.11-0.59) K/uL Eos # (Auto) 0.06 (0.00-0.50) K/uL Baso # (Auto) 0.12 (0.00-0.20) K/uL Immature Gran # (Auto) 0.03 (0.01-0.20) K/uL PT 11.7 (9.0-12.0) Seconds INR 1.1 (0.9-1.1) APTT 26 (21-31) Seconds PTT Ratio 1.0 Sodium 139 (136-145) mmol/L Potassium 4.1 (3.5-5.1) mmol/L Chloride 105 (98-107) mmol/L Carbon Dioxide 27 (21-32) mmol/L Anion Gap 7 (3-11) BUN 21 (6-23) mg/dl Creatinine 1.27 H (0.6-1.2) mg/dl Est Cr Clr Drug Dosing 51.3 ml/min eGFR 47.81 BUN/Creatinine Ratio 16.5 (10-20) Glucose 139 H (70-99(Fasting)) mg/dl Calcium 9.2 (8.6-10.3) mg/dl Total Bilirubin 1.0 (0.2-1.0) mg/dl AST 36 (13-39) U/L ALT 34 (7-52) U/L Alkaline Phosphatase 68 (34-104) U/L Troponin I High Sens 7.1 10.0 (0-14) pg/ml Total Protein 7.2 (6.0-8.3) gm/dl Albumin 4.4 (3.4-5.0) gm/dl Globulin 2.8 (2.5-4.0) gm/dl Albumin/Globulin Ratio 1.6 (0.9-2) Lipase 23 (11-82) U/L SARS-CoV-2 (PCR) NEGATIVE (Negative) Influenza Type A (PCR) Negative (Neg) Influenza Type B (PCR) Negative (Neg) RSV (RT-PCR) Negative (Neg) Administered Medications Diltiazem HCl 125 mg/ Dextrose 125 mls @ 5 mls/hr IV .Q24H ROHAN; Protocol Stop: 11/06/24 10:14 Last Admin: 10/07/24 10:23 Dose: 5 mg/hr, 5 mls/hr Documented By: MARTINA Co-signed By: SOFY Heparin Sodium/Dextrose (Heparin 97782 Unit/500 Ml D5w) 25,000 units in 500 mls @ 18 mls/hr IV .Q24H ROHAN; Protocol Stop: 11/06/24 11:44 Last Admin: 10/07/24 13:16 Dose: 900 units/hr, 18 mls/hr Documented By: SOFY Co-signed By: CRISTY Discontinued Medications Diltiazem HCl (Diltiazem Hcl 5 Mg/Ml 5 Ml Vial) 10 mg IV NOW STA Stop: 10/07/24 10:07 Last Admin: 10/07/24 10:10 Dose: 10 mg Documented By: MARTINA Co-signed By: SUELLEN Furosemide (Furosemide 40 Mg/4 Ml Vial) 40 mg IV NOW STA Stop: 10/07/24 10:52 Last Admin: 10/07/24 12:34 Dose: 40 mg Documented By: SOFY Heparin Sodium (Porcine) (Heparin Sod (Porcine) 1000 Unit/Ml) 4,000 units IV NOW ONE Stop: 10/07/24 11:46 Last Admin: 10/07/24 13:15 Dose: 4,000 units Documented By: SOFY Co-signed By: CRISTY Imaging Data Radiologist's Impression: Chest X-Ray 10/07/24 09:59 XR chest 1V portable CLINICAL HISTORY: Chest pain, nonspecific COMPARISON STUDY: 06/17/2022 FINDINGS: There is interval mild cardiomegaly with mild pulmonary vascular congestion. There are interval small to moderate bilateral pleural effusions and associated lower lung consolidation. No pneumothorax. IMPRESSION: 1. CHF. 2. Bilateral pleural effusions and associated lower lung consolidation. ACT 112: Negative or not required by law. Electronically signed by: Mickey Buckner M.D. 10/07/2024 10:21 AM Discharge Plan Visit Data Chief Complaint: Tachycardia Stated Complaint: SOB, COUGH/CONGESTION, TACHYCARDIA/ABN EKG ED Provider: Otis Carbajal Discharge Problem: Atrial fibrillation with rapid ventricular response, Acute systolic CHF (congestive heart failure), Shortness of breath, Pleural effusion Forms Stand Alone Forms: [facility] [employer] Prescriptions Prescriptions: No Action metoprolol tartrate 25 mg tablet 25 mg PO BID 90 Days Qty: 180 4RF Rx Instructions: filled 07/18/24 90 day supply aspirin [[facility]] 81 mg tablet,delayed release (DR/EC) 81 mg PO DAILY Rx Instructions: 10/07-otc unable to verify coenzyme Q10 [Co Q-10] 10 mg capsule 10 mg PO BID Rx Instructions: 10/07-otc unable to verify Referrals Referrals: Jany Vargas MD [Primary Care Provider] -
[2024-10-07] MEDS: dilTIAZem HCl 5 MG/ML 5 ML VIAL IV STA (10:10)
--- NOTE | 2024-10-07 10:22 | XRay Report ---
XR chest 1V portable CLINICAL HISTORY: Chest pain, nonspecific COMPARISON STUDY: 06/17/2022 FINDINGS: There is interval mild cardiomegaly with mild pulmonary vascular congestion. There are inte rval small to moderate bilateral pleural effusions and associated lower lung consolidation. No pneumo thorax. IMPRESSION: 1. CHF. 2. Bilateral pleural effusions and associated lower lung consolidation. ACT 112: Negative or not required by law. Electronically signed by: Mickey Buckner M.D. 10/07/2024 10:21 AM
[2024-10-07] MEDS: dilTIAZem HCL 125 MG in DEXTROSE 5% 100 ML IV SCH (10:23)
[2024-10-07 10:27] LABS: Basophils # (auto) 0.12 K/uL (0.00-0.20); Basophils % (auto) 1.2 %; Eosinophils # (auto) 0.06 K/uL (0.00-0.50); Eosinophils % (auto) 0.6 %; Hemoglobin 15.8 g/dl (12.0-16.0); Immature Granulocytes # (auto) 0.03 K/uL (0.01-0.20); Immature Granulocytes % (auto) 0.3 %; Lymphocytes # (auto) 2.43 K/uL (1.20-3.40); Lymphocytes % (auto) 24.8 %; Mean Corpuscular Hgb Conc 32.9 g/dL (32.0-36.0); Mean Corpuscular Volume 97.4 fL (80.0-100.0); Mean Platelet Volume 11.3 fL (9.4-12.4); Monocytes # (auto) 0.69 K/uL (0.11-0.59); Neutrophils # (auto) 6.47 K/uL (1.40-6.50); Neutrophils % (auto) 66.1 %; Platelet Count 267 K/uL (130-400); RDW Coefficient of Variation 15.1 % (11.5-14.5); RDW Standard Deviation 54.4 fL (36.4-46.3); Red Blood Count 4.93 M/uL (4.20-5.40)
[2024-10-07 10:41] LABS: Albumin Globulin Ratio 1.6 (0.9-2); Albumin Level 4.4 gm/dl (3.4-5.0); BUN Creatinine Ratio 16.5 (10-20); Calcium 9.2 mg/dl (8.6-10.3); Creatinine Clr Calc Pharmacy 51.3 ml/min; Globulin 2.8 gm/dl (2.5-4.0); Potassium 4.1 mmol/L (3.5-5.1); Total Protein 7.2 gm/dl (6.0-8.3)
[2024-10-07 10:47] LABS: Troponin I High Sensitivity 7.1 pg/ml (0-14)
[2024-10-07] MEDS ORDERED: ACETAMINOPHEN 325 MG TAB PO PRN (11:11)
[2024-10-07] MEDS ORDERED: ONDANSETRON INJ 2 MG/ML 2 ML VIAL IV PRN (11:11)
--- NOTE | 2024-10-07 11:39 | History & Physical Report ---
Date of Service October 07, 2024 Assessment & Plan (1) Atrial fibrillation with rapid ventricular response: Plan: Assessment: 1. Atrial fibrillation with rapid ventricular response. This is a recurrence. She had an analogous episode in 2022. She has followed with cardiology and has been on 81 mg of aspirin and metoprolol since then. She is doing well up until the last couple weeks. Today she is now in A-fib with RVR. She is not now on a Cardizem drip. Will start a heparin drip. We have consulted cardiology. I communicated with Dr. Rivera. Will do serial troponins and an echocardiogram as well. 2. Respiratory viral symptoms including rhinorrhea cough excetra. Will screen for influenza and COVID and RSV. Pending at the time of this dictation. 3. Tobacco abuse and a former smoking cigarettes although she was typically half pack a day smoker over the last 2 months see his been trying to cut down and she is down to 1 to 2 cigarettes/day. 4. Mild elevation in creatinine. Baseline appears to be 0.88 she is 1.27 today. The last creatinine from June 2022. Will monitor her renal function to see if this could be development of mild CKD versus LALO. 5. Acute CHF with pulmonary edema-suspect diastolic. Probably high-output cardiac failure secondary to A-fib with RVR. She received a one-time dose of Lasix 40 mg in the ER. Will monitor her volume status I will not order any further diuresis until we see how she responds to the initial Lasix and what her echo shows. Plan: As described above. Please refer to orders for further planning. History of Present Illness Chief Complaint: Atrial fibrillation with rapid ventricular response Primary Care Provider: Jany Vargas MD This is a pleasant 63-year-old female who back in 2022 had an episode of paroxysmal atrial fibrillation. At that time she had a echocardiogram which showed a well-preserved left ventricular ejection fraction. She followed with cardiology with recommendations of daily 81 mg of aspirin. Has been following that protocol. Over the last 2 weeks has been having intermittent shortness of breath and palpitations and cough. She presented to your primary care physician's office today was in A-fib with RVR. She was directed to the ER for further evaluation and treatment. In the ER her laboratory studies were unremarkable including a negative troponin. Chest x-ray showed pulmonary edema. EKG showed A-fib with RVR in the 150s. Course in the ER she received a bolus of IV Cardizem and commenced on a Cardizem drip. She also received 40 mg of IV Lasix. We are called admit the patient for further evaluation and treatment. We are going to do an echocardiogram. Do serial troponins. With pain cardiology consultation with Dr. Rivera. The patient had aspirin this morning already as well as her oral metoprolol. We will heparinize the patient for primary stroke prophylaxis pending echocardiogram could be switched over to oral anticoagulation. In addition she has been having a cough and a runny nose. Will going to screen her for COVID and influenza and RSV. Allergies Allergy/AdvReac Type Severity Reaction Status Date / Time latex Allergy Unknown rash Verified 10/07/24 08:13 SURGICAL BANDAGES Allergy Unknown RASH Uncoded 10/07/24 08:13 Home Medications Medication Instructions Recorded Confirmed Type aspirin 81 mg tablet,delayed 81 mg PO DAILY 06/27/22 10/07/24 [facility] metoprolol tartrate 25 mg tablet 25 mg PO BID 90 days #180 tabs 07/20/23 10/07/24 Rx coenzyme Q10 10 mg capsule (Co 10 mg PO BID 01/06/24 10/07/24 History Q-10) Past Med/Surg History Problem List (Updated 10/07/24 @ 11:36 by Wes Gonzalez, PhD, DO) Atrial fibrillation with rapid ventricular response Tobacco abuse Paroxysmal atrial fibrillation Atrial fibrillation, new onset (Acute) Medical History Orthostatic hypotension Frostbite Surgical History H/O ovarian cystectomy History of arthroscopic knee surgery S/P total abdominal hysterectomy Family History Father Diabetes Heart disease Hypertension Lung disease Myocardial infarction Brother Diabetes Hypertension Denies family history of Ovarian cancer Prostate cancer Breast cancer Colorectal cancer Social History (Updated 04/27/23 @ 14:43 by Samaria Gonzalez LPN) Smoking Status: Current some day smoker Tobacco Type: Cigarettes Age Started Using Tobacco: 39; packs per day: 0.5; Second Hand Exposure: No; Do You Dip or Chew Tobacco: No; Hx Alcohol Use: No Hx Substance Use: No Preferred Language: German Communication Ability: Effective Visual Impairment: No Limitations Hearing Ability: Normal Relay Record Clerk Required: No Beliefs That Will Affect Care: Mandaeism marital status: Single marital status details: Currently engaged Current Living Situation: Spouse Current Living Situation Comment: Lives with tamera current occupational status: employed 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 Physical Exam Physical Exam: In General: In general pleasant 63-year-old female is alert and oriented x 3 at the time my examination. She is accompanied by her with whom she lives. She denies any acute distress and she interacts appropriately and pleasantly. HEENT: Normocephalic atraumatic pupils are equal round and reactive to light bilaterally. No scleral icterus no conjunctival injection external auditory canals are patent septum is in the midline nose is without discharge oral mucosa is pink and moist without lesion. NECK: Supple no rigidity no lymphadenopathy no thyromegaly no carotid bruits no JVD no masses. HEART: Irregular rate and rhythm consistent with A-fib with RVR. Rates currently in the 120s to 130s. No rub.. No murmur. LUNGS: Clear in the apices and midlung fuentes. She does have decreased breath sounds in the lower lung fuentes with cardiac rales. ABDOMEN: Soft nontender, no rebound, no peritoneal signs, positive bowel sounds, no appreciable organomegaly. EXTREMITIES: Intact, no peripheral cyanosis, clubbing or edema. Strength is 5 out of 5 in extremities x4. NEUROLOGICAL: Cranial nerves II through XII are grossly intact with no focal deficit elicited upon examination. Results & Data Results & Data Vital Signs (Past 12 Hours) Vital Signs Temp Pulse Resp BP Pulse Ox O2 Del Method 10/07/24 10:41 94 Room Air 10/07/24 10:08 143 H 10/07/24 10:05 96 Room Air 10/07/24 09:42 36.4 C L 135 H 24 121/98 97 Room Air Code Status & VTE Plan Code Status Full code. I personally discussed with patient at the bedside VTE Prophylaxis Plan VTE Prophylaxis will be ordered: Yes PG Care Time/CCT Total # of Minutes Spent Total Time Spent with Patient: Total time spent is greater than 50% in coordination of care (as documented) at patient's floor/unit and/or counseling patient: Coding Level of Care Code 09569 INT INP/OBS CARE 3/75MIN Diagnoses Atrial fibrillation with rapid ventricular response I48.91
--- NOTE | 2024-10-07 12:20 | Cardiology Consultation ---
Date of Consultation October 07, 2024 Assessment & Plan (1) Atrial fibrillation with rapid ventricular response: -Suspect this has been present for a considerable period of time (left ventricular dysfunction). -Okay to use intravenous diltiazem until her heart rate is better controlled. -Once heart rate controlled, would wean diltiazem in favor of metoprolol tartrate. -Can convert metoprolol to tartrate to metoprolol succinate prior to discharge. -Agree with intravenous heparin for now. -Will require long-term anticoagulation as she has developed CHF. (2) Acute systolic CHF (congestive heart failure): -Likely secondary to atrial fibrillation with rapid ventricular response. -Would use intravenous diuretics at least daily, if not twice daily. -Add ACEI/ARB once blood pressure allows. (3) Left ventricular dysfunction: -Likely secondary to atrial fibrillation with a rapid ventricular response. -Fortunately, her high-sensitivity troponin is normal despite her rapid ventricular response over a considerable timeframe. History of Present Illness Reason for Consultation: Mrs. Hoff is a 63-year-old female admitted earlier today with decompensated CHF and atrial fibrillation with rapid ventricular response. This consultation was ordered to assist in her cardiac management. Of note, I met the patient during hospitalization for atrial fibrillation in 2022. The patient was in her usual state of health until approximately 4 to 6 weeks ago. She claims that she had the "flu" that she caught from her sister and [id number]. Over that timeframe, she began to note progressive exertional dyspnea, orthopnea, and PND. She is also noticed a 10 pound weight gain. She was diagnosed with paroxysmal atrial fibrillation back in June 2022. She has been maintained on rate control since that time. She was not given long- term anticoagulation as her [id number] score was only "1" based on gender. She has not had any recent episodes of her atrial fibrillation according to her report. She specifically denies sustained palpitations. She presented today for primary care visit and was found to be in atrial fibrillation with a rapid ventricular response. She was sent to the emergency room for further care. Currently, patient is resting comfortably in bed and without complaints. Past medical and surgical history 1. Paroxysmal atrial fibrillationJan2022 2. Hysterectomy 3. Ovarian cystectomy Social history Single, lives with her boyfriend No tobacco or alcohol Family history Noncontributory Review of systems A 10 point review of system was undertaken and negative except that described above. Allergies Allergy/AdvReac Type Severity Reaction Status Date / Time latex Allergy Unknown rash Verified 10/07/24 08:13 SURGICAL BANDAGES Allergy Unknown RASH Uncoded 10/07/24 08:13 Home Medications Medication Instructions Recorded Confirmed Type aspirin 81 mg tablet,delayed 81 mg PO DAILY 06/27/22 10/07/24 History release (Hendry Aspirin) metoprolol tartrate 25 mg tablet 25 mg PO BID 90 days #180 tabs 07/20/23 10/07/24 Rx coenzyme Q10 10 mg capsule (Co 10 mg PO BID 01/06/24 10/07/24 History Q-10) Patient History Medical History Orthostatic hypotension Frostbite Surgical History H/O ovarian cystectomy History of arthroscopic knee surgery S/P total abdominal hysterectomy Family History Father Diabetes Heart disease Hypertension Lung disease Myocardial infarction Brother Diabetes Hypertension Denies family history of Ovarian cancer Prostate cancer Breast cancer Colorectal cancer Social History (Updated 04/27/23 @ 14:43 by Saamria Gonzalez LPN) Smoking Status: Current some day smoker Tobacco Type: Cigarettes Age Started Using Tobacco: 39; packs per day: 0.5; Second Hand Exposure: No; Do You Dip or Chew Tobacco: No; Hx Alcohol Use: No Hx Substance Use: No Preferred Language: French Communication Ability: Effective Visual Impairment: No Limitations Hearing Ability: Normal [employer] Required: No Beliefs That Will Affect Care: Scientology marital status: Single marital status details: Currently engaged Current Living Situation: Spouse Current Living Situation Comment: Lives with fiance current occupational status: employed 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 HEENT exam is negative. Neck is supple with full carotid upstrokes. There are no carotid bruits. Jugular venous pressure is flat at 90 degrees. There is no thyromegaly. Cardiovascular exam reveals an irregularly irregular rhythm with distant heart sounds. No obvious murmurs. No S3. Lungs noted decreased breath sounds at the bases with rales noted just above. Abdomen is soft without bruits. Extremities reveal intact radial radial pulses bilaterally. There is trace pretibial edema. Results & Data Vital Signs (Past 12 Hours) Vital Signs Temp Pulse Resp BP Pulse Ox O2 Del Method 10/07/24 10:41 94 Room Air 10/07/24 10:08 143 H 10/07/24 10:05 96 Room Air 10/07/24 09:42 36.4 C L 135 H 24 121/98 97 Room Air Laboratory Results CBC notes hemoglobin of 15.8, hematocrit 48.0, white count 9.8, and a platelet count of 267,000. Electrolytes noted sodium of 139, potassium 4.1, chloride 105, bicarb 27, BUN 21, creatinine 1.27, and a glucose of 139. High-sensitivity troponin is normal at 7.1. Diagnostic Findings Echocardiogram at the bedside notes left ventricular dilatation and severe global hypokinesis with left ventricular ejection fraction of 20 to 25%. EKG notes atrial fibrillation with a rapid ventricular response. There is poor R wave progression across the anterior precordium. Chest x-ray notes cardiomegaly, interstitial edema, a large right pleural effusion, and a small left pleural effusion. PG Care Time/CCT Total # of Minutes Spent Total Time Spent with Patient: Total time spent is greater than 50% in coordination of care (as documented) at patient's floor/unit and/or counseling patient: Coding Level of Care Code 81097 IN/OBS CONSULT LVL 4,60M Diagnoses Atrial fibrillation with rapid ventricular response I48.91 Acute systolic CHF (congestive heart failure) I50.21 Left ventricular dysfunction I51.9
[2024-10-07] MEDS: FUROSEMIDE 40 MG/4 ML VIAL IV STA (12:34)
--- NOTE | 2024-10-07 12:43 | XCELERA ---
[id number]
[2024-10-07 12:50] LABS: INR 1.1 (0.9-1.1); Partial Thromboplastin Time 26 Seconds (21-31); Prothrombin Time 11.7 Seconds (9.0-12.0)
[2024-10-07 13:09] LABS: Influenza A virus by PCR Negative (Neg); Influenza B virus by PCR Negative (Neg); RSV by PCR Negative (Neg); SARS CoV2 RNA(COVID-19) Ceph NEGATIVE (Negative)
[2024-10-07] MEDS: HEPARIN SOD (PORCINE) 1000 UNIT/ML IV ONE (13:15)
[2024-10-07] MEDS: HEPARIN 25000 UNIT/500 ML D5W 25,000 UNITS/500 ML BAG IV SCH (13:16)
[2024-10-07] MEDS: STAT IV Infusion **Titration per Protocol STA (15:39)
[2024-10-07 19:38] LABS: ANTI-Xa, UFH(UnfractionatedHep 0.51 IU/ml (0.3-0.7)
[2024-10-07] MEDS: METOPROLOL TARTRATE 25 MG TAB PO SCH (20:44)
[2024-10-07] MEDS: Heparin IV Adult Wt-Based Low-Dose w/ INITIAL Bolus Protocol IV SCH (20:50)
[2024-10-08] MEDS: ALBUT/IPRATROP 3MG/0.5MG NEB 3 ML VIAL NEB STA (04:05)
[2024-10-08] MEDS: Nursing to Pharmacy Communication SCH (04:43)
--- NOTE | 2024-10-08 07:21 | Hospitalist Progress Note ---
Date of Service October 08, 2024 Assessment & Plan (1) Atrial fibrillation with rapid ventricular response: (2) Tobacco abuse: (3) Acute systolic CHF (congestive heart failure): (4) Left ventricular dysfunction: (5) Shortness of breath: Plan #Atrial Fibrillation with Rapid Ventricular Response -Cardiology consulted, appreciate recommendations -Started on Cardizem drip on admission (10/07) with rate of 10 decreased to 5 overnight, with plans to wean to metoprolol -Home medication metoprolol tartrate 25mg BID discontinued and started metoprolol succinate 50mg -Telemetry shows rates of 100-120 primarily this morning -Currently on heparin drip, will stop and transition to Eliquis 5mg BID which will need to be continued at discharge -K 3.7, additional 40meq repletion ordered #Congestive Heart Failure with Reduced Ejection Fraction -Echo obtained (10/07/24) which showed left ventricular dysfunction/severe global hypokinesis of the left ventricle and EF 20-25% -Significant change from prior echo in 2022 -Likely secondary to Afib RVR, lower likelihood this is due to ischemia -Ordered Lasix 20mg IV this a.m., would consider additional Lasix if hypoxia is failing to improve (currently on 1L NC). Wean oxygen as able -Endorses several weeks of cough with some clear phlegm, negative COVID/flu/RSV testing #LALO -Mild elevation of Cr from 0.88 baseline to 1.27 on admission -Cr today at 0.98. Continue to monitor metabolic panel daily in setting of starting furosemide #Tobacco Use -Nicotine patch while admitted -Encourage smoking cessation Diet: heart healthy VTE Prophylaxis: Eliquis Code Status: Full Code Admission and Anticipated Discharge Date Admission Date: October 07, 2024 Supervising Physician Co-Signing Physician Notes I personally examined the patient and verified all roa points of history and exam, discussed case, and agree with decision making with Dr Monsalve feeling ok still some cough and orthopnea vitals noted nad heent nc at mmm cardio distant probable gallop lungs faint rales no accessory muscles afib/RVR/acute on chronic combined CHF (systolic likely rate related, but also current failure probably diastolic from rate related lack of filling time) -rate control -diurese -anticoagulate -afterload reduction otherwise as above Subjective Patient was seen and examined at bedside. Notes that she had some increased shortness of breath, was given a duoneb. States she is more comfortable with her breathing this morning, was placed on 2L NC overnight. Denies chest pain. Eating and drinking without issue. Review of Systems Review of Systems: As per above Physical Exam Constitutional: WD/WN, vitals as above Eyes: + anicteric sclerae; no conjunctival abn ormality ENMT: Ears: no external ear abnormality Nose: no external nose abnormality Moist mucous membranes Respiratory: Normal respiratory efforts. No wheezing or rhonchi. Currently on 2L NC Cardiovascular: Rate/Rhythm: + irregularly irregular Minimal lower extremity edema Gastrointestinal (Abdomen): Inspection/Auscultation: abdomen normal to inspection; abdomen not distended Percussion/Palpation: abdomen soft; abdomen nontender Musculoskeletal: Moves all limbs independently Skin: no rashes, warm and dry Neurologic: no focal motor deficits Psychiatric: A+Ox3, euthymic affect Results & Data Results & Data Vital Signs (Past 12 Hours) Vital Signs Temp Pulse Pulse Resp BP Pulse Ox O2 Del Method 10/08/24 04:06 82 16 87 L Room Air 10/08/24 04:04 36.7 C 117 H 19 123/88 90 Room Air 10/08/24 00:36 36.9 C 106 H 18 105/72 92 Room Air 10/07/24 23:15 93 H 10/07/24 19:52 36.9 C 113 H 17 100/66 94 Room Air Resident Activity Tracking Resident Involvement: Resident Care Provided Care Provided: Adult Hospital Medicine
[2024-10-08] MEDS: ASPIRIN 81 MG ECTAB PO SCH (07:43)
[2024-10-08 07:47] LABS: Hematocrit (blood only) 40.5 % (37.0-47.0); Hemoglobin 13.9 g/dl (12.0-16.0); Mean Corpuscular Hemoglobin 32.3 pg (25.0-34.0); Mean Corpuscular Hgb Conc 34.3 g/dL (32.0-36.0); Mean Platelet Volume 11.7 fL (9.4-12.4); Platelet Count 219 K/uL (130-400); RDW Coefficient of Variation 14.6 % (11.5-14.5); RDW Standard Deviation 50.6 fL (36.4-46.3); Red Blood Count 4.31 M/uL (4.20-5.40); White Blood Count 7.54 K/ul (4.8-10.8)
[2024-10-08 08:01] LABS: BUN Creatinine Ratio 19.4 (10-20); Calcium 8.5 mg/dl (8.6-10.3); Creatinine Clr Calc Pharmacy 66.5 ml/min; Potassium 3.7 mmol/L (3.5-5.1)
[2024-10-08 08:22] LABS: ANTI-Xa, UFH(UnfractionatedHep 0.42 IU/ml (0.3-0.7)
[2024-10-08] MEDS: POTASSIUM CHLORIDE 10 MEQ TABCR PO STA (08:30)
--- NOTE | 2024-10-08 09:55 | Cardiology Progress Note ---
Date of Service October 08, 2024 Assessment & Plan (1) Shortness of breath: (2) Acute systolic CHF (congestive heart failure): (3) Atrial fibrillation with rapid ventricular response: Plan 1. Shortness of breath: This appears to be due to congestive heart failure due to left ventricular dysfunction. 2. Congestive heart failure: Although her heart failure is objectively not severe her heart failure appears to be due to severe left ventricular dysfunction. The cause of her cardiomyopathy is likely rate related, although other possibilities clearly exist. I do not suspect ischemia, it is most likely nonischemic. Rate control and ultimately rhythm control would be the mainstay of treatment, currently her rate is not adequately controlled. In addition to this however we do need to place her on heart failure medications, beta-blockade will be essential for heart rate control and for her cardiomyopathy, I would recommend Entresto as well, we may be able to hold off on other medications and see if she has rapid correction of her cardiomyopathy which sometimes occurs. If not then other medications will need to be added such as Jardiance and spironolactone. 3. Atrial fibrillation: I do not know how long she has had atrial fibrillation, I suspect it preceded her symptoms but we cannot prove that. The duration may impact how well her cardiomyopathy recovers. She should be on an anticoagulant, and we need to get the heart rate under control. I am going to increase her beta-devonte and switch to metoprolol succinate this morning (she received 25 mg of metoprolol tartrate so I am going to give her 50 mg of metoprolol succinate in addition and if her blood pressure holds increase that later). I would anticipate cardioversion in 1 month if she remains in atrial fibrillation, but given her history we may want to start an antiarrhythmic at that time or she will almost certainly have a recurrence. I would not do it now however since we do not want to convert to sinus rhythm yet. If we have to we can consider MAIDA guided cardioversion but I think our current approach will be sufficient for now. Admission and Anticipated Discharge Date Admission Date: October 07, 2024 Subjective Chart reviewed, patient seen and examined. In brief she was admitted with congestive heart failure and rapid atrial fibrillation, she has a history of paroxysmal atrial fibrillation diagnosed over a year ago but probably present for longer and has not been maintained on anticoagulation due to a low VVA1RB4- VASc score. She was last seen in June 2022 and a follow-up was recommended but she was not seen by cardiology subsequently. Her chart indicates that she was told she no longer needs to follow-up with cardiology, however we had rohan eduled a follow-up visit after her June 27, 2022 visit. She was seen occasionally by her PCP, on 1 occasion (April 27, 2023) her heart rate was 128 however in December 2023 it was 75. She has not felt well for several weeks although since she does not clearly feel her atrial arrhythmia it is likely the arrhythmia has been present for longer than this. She was observed to have a rapid heart rate when she visited her PCP on October 07, 2024, she was sent to the emergency room where an electrocardiogram that morning showed atrial fibrillation with a heart rate of 155 bpm. An echocardiogram done that day showed severe left ventricular dysfunction with global hypokinesis and a left ventricular ejection fraction of 20 to 25%. Her cardiac enzymes were not elevated and the electrocardiogram did not show signs of ischemia. It is felt that this might represent a cardiomyopathy due to rapid heart rates. She had been treated with low-dose metoprolol tartrate as an outpatient, only 25 mg twice a day, and it is not clear to me what her preadmission burden or rate control was. Her medical regimen here includes intravenous diltiazem and continuation of her metoprolol tartrate 25 mg twice a day. She is also on heparin. Her heart rate does not appear to be well-controlled on this regimen. At the time of my evaluation she is comfortable, she has had IVs in place and has gone to the bathroom but has not been out ambulating in the duval. He does not have any sensation of palpitations (although remains in atrial fibrillation) and does not have orthopnea or PND. No chest discomfort. Physical Exam Physical Exam: Constitutional: Alert, cooperative and in no distress. HEENT: Unremarkable Neck: No jugular venous distention, carotid pulses are irregular but otherwise normal and equal bilaterally without bruits. Pulmonary: Clear to auscultation bilaterally but with decreased breath sounds bilaterally at the bases. Cardiac: Irregular rhythm with no murmur, gallop or rub. Abdomen: Soft, nontender with normal bowel sounds. Extremities: No edema. Neurologic: No focal findings. Gait was not tested. Skin: No rash, ecchymoses or petechiae. Results & Data Vital Signs (Past 12 Hours) Vital Signs Temp Pulse Pulse Resp BP Pulse Ox O2 Del Method 10/08/24 09:27 Nasal Cannula 10/08/24 07:00 36.6 C 120 H 18 135/70 93 Nasal Cannula 10/08/24 04:06 82 16 87 L Room Air 10/08/24 04:04 36.7 C 117 H 19 123/88 90 Room Air 10/08/24 00:36 36.9 C 106 H 18 105/72 92 Room Air 10/07/24 23:15 93 H O2 Flow Rate 10/08/24 09:27 2 10/08/24 07:00 2 10/08/24 04:06 10/08/24 04:04 10/08/24 00:36 10/07/24 23:15 Laboratory Results Cardiac Enzymes 10/07/24 10/07/24 10/07/24 Range/Units 10:00 12:26 16:23 AST 36 (13-39) U/L Troponin I High Sens 7.1 10.0 10.1 (0-14) pg/ml Coagulation 10/07/24 Range/Units 10:00 PT 11.7 (9.0-12.0) Seconds APTT 26 (21-31) Seconds CBC 10/07/24 10/08/24 Range/Units 10:00 07:11 WBC 9.80 7.54 (4.8-10.8) K/ul RBC 4.93 4.31 (4.20-5.40) M/uL Hgb 15.8 13.9 (12.0-16.0) g/dl Hct 48.0 H 40.5 (37.0-47.0) % Plt Count 267 219 (130-400) K/uL Neut # (Auto) 6.47 (1.40-6.50) K/uL Lymph # (Auto) 2.43 (1.20-3.40) K/uL [place] # (Auto) 0.69 H (0.11-0.59) K/uL Eos # (Auto) 0.06 (0.00-0.50) K/uL Baso # (Auto) 0.12 (0.00-0.20) K/uL Comprehensive Metabolic Panel 10/07/24 10/08/24 Range/Units 10:00 07:11 Sodium 139 136 (136-145) mmol/L Potassium 4.1 3.7 (3.5-5.1) mmol/L Chloride 105 103 (98-107) mmol/L Carbon Dioxide 27 25 (21-32) mmol/L BUN 21 19 (6-23) mg/dl Creatinine 1.27 H 0.98 (0.6-1.2) mg/dl Glucose 139 H 117 H (70-99(Fasting)) mg/dl Calcium 9.2 8.5 L (8.6-10.3) mg/dl AST 36 (13-39) U/L ALT 34 (7-52) U/L Alkaline Phosphatase 68 (34-104) U/L Total Protein 7.2 (6.0-8.3) gm/dl Albumin 4.4 (3.4-5.0) gm/dl Intake and Output 10/07/24 10/08/24 10/08/24 22:59 06:59 14:59 Intake Total 704.267 / 797.267 73.667 / 797.267 Balance 704.267 / 797.267 73.667 / 797.267 Intake: IV 154.267 / 247.267 73.667 / 247.267 Heparin 08920 Unit/500 ml D5w 105.6 / 105.6 25,000 units In 500 ml @ 900 UNITS/HR 18 mls/hr IV .Q24H ROHAN Rx#:[id number] dilTIAZem HCL 125 mg In 48.667 / 141.667 73.667 / 141.667 Dextrose 5% 100 ml @ 10 MG/HR 10 mls/hr IV .[id number] ROHAN Rx#: [id number] Oral 550 / 550 Other: # Unmeasured Voids 3 Weight 79.2 kg 79.2 kg Weight Measurement Method Built in [facility] Diagnostic Findings Telemetry: Atrial fibrillation, rapid heart rate early this morning, now better controlled but still around 100 bpm. PG Care Time/CCT Total # of Minutes Spent Total Time Spent with Patient: Total time spent is greater than 50% in coordination of care (as documented) at patient's floor/unit and/or counseling patient: Coding Level of Care Code 11948 SUB INP/OBS CARE 3/50MIN Diagnoses Shortness of breath R06.02 Acute systolic CHF (congestive heart failure) I50.21 Atrial fibrillation with rapid ventricular response I48.91
[2024-10-08] MEDS: FUROSEMIDE INJ 20 MG/2 ML VIAL IV ONE (09:58)
[2024-10-08] MEDS: METOPROLOL SUCC 50MG EXT REL TAB PO STA (10:26)
[2024-10-08] MEDS: APIXABAN 5 MG TABLET PO SCH (11:35)
--- NOTE | 2024-10-08 14:44 | Billing Data ---
Date of Service October 08, 2024 Coding Level of Care Code 48157 SUB INP/OBS CARE
[2024-10-08] MEDS: METOPROLOL TARTRATE 25 MG TAB PO STA (15:18)
[2024-10-08] MEDS: VALSARTAN/SACUBITRIL 26/24MG TAB PO SCH (20:35)
[2024-10-09] MEDS: METOPROLOL TARTRATE 1 MG/ML VIAL IV PRN (06:03)
[2024-10-09 06:28] LABS: Basophils # (auto) 0.12 K/uL (0.00-0.20); Basophils % (auto) 1.4 %; Eosinophils # (auto) 0.23 K/uL (0.00-0.50); Eosinophils % (auto) 2.8 %; Hematocrit (blood only) 44.5 % (37.0-47.0); Hemoglobin 15.5 g/dl (12.0-16.0); Immature Granulocytes # (auto) 0.02 K/uL (0.01-0.20); Immature Granulocytes % (auto) 0.2 %; Lymphocytes # (auto) 2.41 K/uL (1.20-3.40); Mean Corpuscular Hemoglobin 32.6 pg (25.0-34.0); Mean Corpuscular Hgb Conc 34.8 g/dL (32.0-36.0); Mean Corpuscular Volume 93.7 fL (80.0-100.0); Mean Platelet Volume 11.3 fL (9.4-12.4); Monocytes # (auto) 0.78 K/uL (0.11-0.59); Monocytes % (auto) 9.4 %; Neutrophils # (auto) 4.76 K/uL (1.40-6.50); Neutrophils % (auto) 57.2 %; Platelet Count 224 K/uL (130-400); RDW Coefficient of Variation 14.7 % (11.5-14.5); RDW Standard Deviation 50.6 fL (36.4-46.3); Red Blood Count 4.75 M/uL (4.20-5.40); White Blood Count 8.32 K/ul (4.8-10.8)
[2024-10-09] MEDS: METOPROLOL TARTRATE 1 MG/ML VIAL IV ONE (06:34)
[2024-10-09 06:53] LABS: BUN Creatinine Ratio 20.5 (10-20); Calcium 8.6 mg/dl (8.6-10.3); Chol HDL Ratio 4.2 (0-5); Creatinine Clr Calc Pharmacy 74.1 ml/min; Potassium 3.8 mmol/L (3.5-5.1)
--- NOTE | 2024-10-09 07:24 | Hospitalist Progress Note ---
Date of Service October 09, 2024 Assessment & Plan (1) Atrial fibrillation with rapid ventricular response: (2) Tobacco abuse: (3) Acute systolic CHF (congestive heart failure): (4) Left ventricular dysfunction: (5) Shortness of breath: Plan #Atrial Fibrillation with Rapid Ventricular Response -Cardiology consulted, appreciate recommendations -Started on Cardizem drip on admission (10/07) with rate of 10 decreased to 5 overnight, with plans to wean to metoprolol -Home medication metoprolol tartrate 25mg BID discontinued, now cardiology started metoprolol succinate 100mg with anticipation of increase to 200mg tomorrow -Dose of Digoxin ordered due to persistent HR of 120s-130s -Entresto initiated on 10/08, will request case management to verify cost of medication prior to discharge -NPO at midnight to assess for need to cardioversion in case of continued uncontrolled HR -Stopped heparin drip and transitioned to Eliquis 5mg BID which will need to be continued at discharge #Congestive Heart Failure with Reduced Ejection Fraction -Echo obtained (10/07/24) which showed left ventricular dysfunction/severe global hypokinesis of the left ventricle and EF 20-25% -Significant change from prior echo in 2022 -Likely secondary to Afib RVR, lower likelihood this is due to ischemia -Ordered dose of Lasix on 10/08, hypoxia now resolved and no current oxygen requirement -Endorses several weeks of cough with some clear phlegm, negative COVID/flu/RSV testing #LALO (resolved) -Mild elevation of Cr from 0.88 baseline to 1.27 on admission -Cr today at 0.88, back to baseline #Tobacco Use -Nicotine patch while admitted -Encourage smoking cessation Diet: heart healthy VTE Prophylaxis: Eliquis Code Status: Full Code Admission and Anticipated Discharge Date Admission Date: October 07, 2024 Supervising Physician Co-Signing Physician Notes I personally examined the patient and verified all rao points of history and exam, discussed case, and agree with decision making with Dr Monsalve breathing feeling better, heart rates still at times inadequate vitals noted nad heent nc at mmm breathing unlabored no accessory muscle use good effort. Skin without rashes pallor or icterus. Up to 130s on monitor o vernight afib/RVR/acute on chronic combined CHF (systolic likely rate related, but also current failure probably diastolic from rate related lack of filling time) -rate control ongoing - digoxin. rhythm control (MAIDA cardioversion if not better by AM) -diuresed -anticoagulate -afterload reduction otherwise as above Subjective Patient was seen and examined at bedside. Overnight at approximately 05:00, patient got up to use the bathroom and then had a coughing fit which lead to her HR jumping over 150s. Was given dose of IV lopressor. This morning she is overall feeling better, less coughing and no shortness of breath at rest. Denies chest pain. Review of Systems Review of Systems: As per above Physical Exam Constitutional: WD/WN, vitals as above Eyes: + anicteric sclerae; no conjunctival abn ormality ENMT: Ears: no external ear abnormality Nose: no external nose abnormality Moist mucous membranes Respiratory: normal respiratory effort, lungs clear to auscultation Occasional cough Cardiovascular: Rate/Rhythm: + irregularly irregular No lower extremity edema bilaterally Gastrointestinal (Abdomen): Inspection/Auscultation: abdomen normal to inspection; abdomen not distended Percussion/Palpation: abdomen soft; abdomen nontender Skin: no rashes, warm and dry Neurologic: no focal motor deficits Psychiatric: A+Ox3, euthymic affect Results & Data Results & Data Vital Signs (Past 12 Hours) Vital Signs Temp Pulse Pulse Resp BP BP Pulse Ox 10/09/24 06:40 36.7 C 108 H 18 99/66 L 93 10/09/24 06:31 108 H 99/66 L 10/09/24 06:03 128 H 123/84 10/09/24 02:59 36.5 C 80 19 114/82 90 10/09/24 00:13 146 H 10/08/24 23:26 36.6 C 128 H 17 132/94 92 10/08/24 19:39 36.6 C 102 H 18 104/65 93 O2 Del Method O2 Flow Rate 10/09/24 06:40 Room Air 10/09/24 06:31 10/09/24 06:03 10/09/24 02:59 Room Air 10/09/24 00:13 10/08/24 23:26 Nasal Cannula 3 10/08/24 19:39 Room Air Resident Activity Tracking Resident Involvement: Resident Care Provided Care Provided: Adult Hospital Medicine
[2024-10-09] MEDS: METOPROLOL TARTRATE 100 MG TAB PO SCH (08:27)
--- NOTE | 2024-10-09 08:58 | Cardiology Progress Note ---
Date of Service October 09, 2024 Assessment & Plan (1) Shortness of breath: (2) Acute systolic CHF (congestive heart failure): (3) Atrial fibrillation with rapid ventricular response: Plan 1. Shortness of breath: This appears to be due to congestive heart failure due to left ventricular dysfunction. This has resolved with diuresis. 2. Congestive heart failure: Although her heart failure is objectively not severe her heart failure appears to be due to severe left ventricular dysfunction. The cause of her cardiomyopathy is likely rate related, although other possibilities clearly exist. I do not suspect ischemia, it is most likely nonischemic. Rate control and ultimately rhythm control would be the mainstay of treatment, currently her rate is not adequately controlled. In addition to this however we do need to place her on heart failure medications, beta-blockade will be essential for heart rate control and for her cardiomyopathy, I would recommend Entresto as well, we may be able to hold off on other medications and see if she has rapid correction of her cardiomyopathy which sometimes occurs. If not then other medications will need to be added such as Jardiance and spironolactone. 3. Atrial fibrillation: I do not know how long she has had atrial fibrillation, I suspect it preceded her symptoms but we cannot prove that. The duration may impact how well her cardiomyopathy recovers. She should be on an anticoagulant, and we need to get the heart rate under control. I am going to increase her beta-devonte and switch to metoprolol succinate tomorrow morning (she received 100 mg of metoprolol tartrate so I am going to give her another 100 mg of metoprolol succinate this evening and switch to metoprolol succinate 200 mg daily in the morning). I am going to add digoxin so that we do not affect her blood pressure more. I would anticipate cardioversion in 1 month if she remains in atrial fibrillation with adequate rate control, but given her history we may want to start an antiarrhythmic at that time or she will almost certainly have a recurrence. I would not do it now however since we do not want to convert to sinus rhythm yet. If we he cannot control the heart rate then we need to consider MAIDA guided cardioversion, I am going to make her n.p.o. tonight after midnight so that we can do this tomorrow if needed. Admission and Anticipated Discharge Date Admission Date: October 07, 2024 Subjective She is feeling well today, no awareness of her heart rate, no shortness of breath. She has been ambulatory and did not have shortness of breath, palpitations but did have possibly slight lightheadedness. Physical Exam Physical Exam: Constitutional: Alert, cooperative and in no distress. HEENT: Unremarkable Neck: No jugular venous distention, carotid pulses are irregular but otherwise normal and equal bilaterally without bruits. Pulmonary: Clear to auscultation bilaterally but with decreased breath sounds bilaterally at the bases. Cardiac: Irregular rhythm with no murmur, gallop or rub. Abdomen: Soft, nontender with normal bowel sounds. Extremities: No edema. Neurologic: No focal findings. Gait was not tested. Skin: No rash, ecchymoses or petechiae. Results & Data Vital Signs (Past 12 Hours) Vital Signs Temp Pulse Pulse Resp BP BP BP 10/09/24 08:28 133 H 104/82 10/09/24 08:17 36.7 C 103 H 18 96/62 L 10/09/24 06:40 36.7 C 108 H 18 99/66 L 10/09/24 06:31 108 H 99/66 L 10/09/24 06:03 128 H 123/84 10/09/24 02:59 36.5 C 80 19 114/82 10/09/24 00:13 146 H 10/08/24 23:26 36.6 C 128 H 17 132/94 Pulse Ox O2 Del Method O2 Flow Rate 10/09/24 08:28 10/09/24 08:17 92 Room Air 10/09/24 06:40 93 Room Air 10/09/24 06:31 10/09/24 06:03 10/09/24 02:59 90 Room Air 10/09/24 00:13 10/08/24 23:26 92 Nasal Cannula 3 Laboratory Results Lipids 10/09/24 Range/Units 05:46 Triglycerides 76 (0-150) mg/dl Cholesterol 147 (0-200) mg/dl HDL Cholesterol 35 mg/dl Cholesterol/HDL Ratio 4.2 (0-5) CBC 10/09/24 Range/Units 05:46 WBC 8.32 (4.8-10.8) K/ul RBC 4.75 (4.20-5.40) M/uL Hgb 15.5 (12.0-16.0) g/dl Hct 44.5 (37.0-47.0) % Plt Count 224 (130-400) K/uL Neut # (Auto) 4.76 (1.40-6.50) K/uL Lymph # (Auto) 2.41 (1.20-3.40) K/uL Aiken # (Auto) 0.78 H (0.11-0.59) K/uL Eos # (Auto) 0.23 (0.00-0.50) K/uL Baso # (Auto) 0.12 (0.00-0.20) K/uL Comprehensive Metabolic Panel 10/09/24 Range/Units 05:46 Sodium 141 (136-145) mmol/L Potassium 3.8 (3.5-5.1) mmol/L Chloride 108 H (98-107) mmol/L Carbon Dioxide 26 (21-32) mmol/L BUN 18 (6-23) mg/dl Creatinine 0.88 (0.6-1.2) mg/dl Glucose 102 H (70-99(Fasting)) mg/dl Calcium 8.6 (8.6-10.3) mg/dl Intake and Output 10/08/24 10/09/24 10/09/24 22:59 06:59 14:59 Intake Total 52.833 / 829.133 Balance 52.833 / 829.133 Intake: IV 52.833 / 329.133 dilTIAZem HCL 125 mg In 52.833 / 52.833 Dextrose 5% 100 ml @ 5 MG/HR 5 mls/hr IV .Q24H ROHAN Rx#: [id number] Other: # Unmeasured Voids 1 Weight 79.1 kg Weight Measurement Method Built in [facility] Diagnostic Findings Telemetry: Atrial fibrillation, heart rate still elevated, generally over 100 PG Care Time/CCT Total # of Minutes Spent Total Time Spent with Patient: Total time spent is greater than 50% in coordination of care (as documented) at patient's floor/unit and/or counseling patient: Coding Level of Care Code 75873 SUB INP/OBS CARE 3/50MIN Diagnoses Shortness of breath R06.02 Acute systolic CHF (congestive heart failure) I50.21 Atrial fibrillation with rapid ventricular response I48.91
[2024-10-09] MEDS ORDERED: METOPROLOL SUCC 50MG EXT REL TAB PO SCH (09:00)
[2024-10-09] MEDS: DIGOXIN 250 MCG in SYRINGE 9 ML IV STA (11:15)
[2024-10-09] MEDS: DIGOXIN 0.125 MG TAB PO ONE (13:45)
--- NOTE | 2024-10-09 15:08 | Billing Data ---
Date of Service October 09, 2024 Coding Level of Care Code 41589 SUB INP/OBS CARE
[2024-10-09] MEDS: METOPROLOL TARTRATE 100 MG TAB PO ONE (20:13)
[2024-10-10 06:52] LABS: Basophils # (auto) 0.12 K/uL (0.00-0.20); Basophils % (auto) 1.1 %; Eosinophils % (auto) 2.8 %; Hematocrit (blood only) 48.3 % (37.0-47.0); Hemoglobin 16.4 g/dl (12.0-16.0); Immature Granulocytes # (auto) 0.03 K/uL (0.01-0.20); Immature Granulocytes % (auto) 0.3 %; Lymphocytes # (auto) 2.07 K/uL (1.20-3.40); Lymphocytes % (auto) 19.1 %; Mean Corpuscular Hemoglobin 32.2 pg (25.0-34.0); Mean Corpuscular Volume 94.9 fL (80.0-100.0); Monocytes # (auto) 0.94 K/uL (0.11-0.59); Monocytes % (auto) 8.7 %; Neutrophils # (auto) 7.38 K/uL (1.40-6.50); Platelet Count 244 K/uL (130-400); RDW Coefficient of Variation 14.7 % (11.5-14.5); RDW Standard Deviation 50.9 fL (36.4-46.3); Red Blood Count 5.09 M/uL (4.20-5.40); White Blood Count 10.84 K/ul (4.8-10.8)
[2024-10-10 07:08] LABS: BUN Creatinine Ratio 17.8 (10-20); Calcium 8.4 mg/dl (8.6-10.3); Creatinine Clr Calc Pharmacy 72.4 ml/min; Potassium 4.3 mmol/L (3.5-5.1)
[2024-10-10] MEDS: METOPROLOL SUCC 50MG EXT REL TAB PO SCH (09:26)
--- NOTE | 2024-10-10 11:24 | Cardiology Progress Note ---
Date of Service October 10, 2024 Assessment & Plan (1) Left ventricular dysfunction: Plan Mrs. Hoff is a 63 year old female who was admitted on 10/07/24 with A-Fib with RVR and decompensated systolic CHF. She thinks she has been in A-Fib over the 2 to 3 weeks leading up to this hospitalization because she was experiencing exertional dyspnea and exertional intolerance. Her exertional dyspnea was very pronounced while climbing up stairs. She is currently maintained on Metoprolol Succinate ER 200 mg daily and Eliquis 5 mg b.i.d.. Unfortunately her ventricular response rate is not controlled. She does appear to be compensated from a heart failure standpoint. Patient has a Cardiomyopathy with an LVEF of 20% to 25% with mild MR. Cardiomyopathy is likely tachycardia induced. Patient will benefit by restoring her sinus rhythm and controlling her heart rate. Recommend the followin. Continue Metoprolol Succinate ER 200 mg daily. 2. Continue Eliquis 5 mg b.i.d.. 3. Arrange for MAIDA/Cardioversion today with Dr. Rodríguez. 4. Continue Entresto 24-26 mg b.i.d.. 5. Consider adding Farxiga. We will follow-up with her following discharge. Admission and Anticipated Discharge Date Admission Date: October 07, 2024 Subjective Mrs. Hoff is a 63 year old female who was admitted on 10/07/24 with A-Fib with RVR and decompensated systolic CHF. She thinks she has been in A-Fib over the 2 to 3 weeks leading up to this hospitalization because she was experiencing exertional dyspnea and exertional intolerance. Her exertional dyspnea was very pronounced while climbing up stairs. She is currently maintained on Metoprolol Succinate ER 200 mg daily and Eliquis 5 mg b.i.d.. Unfortunately her ventricular response rate is not controlled. She does appear to be compensated from a heart failure standpoint. Review of Systems Review of Systems: -- As per HPI. Physical Exam Physical Exam: Blood pressure 113/63, pulse is 110 and irregularly irregular. GENERAL: Patient in no acute distress. HEENT: Head is atraumatic, normocephalic. EOM's intact. Facies symmetric. No perioral cyanosis. NECK: No JVD. JVP is not elevated. Carotid upstrokes are + 2 bilaterally without bruits. CHEST/LUNGS: Absent breath sounds in bilateral bases. CVS: S1 and S2 are irregularly irregular and tachycardiac. No murmurs, gallops, or rubs. PMI is nonpalpable. No lifts, heaves, or thrills. No abdominal aortic or renal bruits. ABDOMINAL EXAM: Bowel sounds are present. EXTREMITIES: No clubbing or cyanosis. No edema. Extremities are well perfused. NEUROLOGIC EXAM: Patient is awake, alert, and oriented. Pleasant and cooperative. Answers questions appropriately. Speech is clear. 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 Results & Data Vital Signs (Past 12 Hours) Vital Signs Temp Pulse Pulse Resp BP Pulse Ox O2 Del Method 10/10/24 08:00 36.5 C 108 H 18 113/63 96 Room Air 10/10/24 05:44 119 H 10/10/24 03:52 36.5 C 121 H 16 101/74 93 Room Air 10/09/24 23:47 36.6 C 78 16 103/71 93 Room Air Laboratory Results Laboratory Results - last 24 hr 10/10/24 06:24 WBC 10.84 H RBC 5.09 Hgb 16.4 H Hct 48.3 H MCV 94.9 MCH 32.2 MCHC 34.0 RDW Std Deviation 50.9 H RDW Coeff of Maria Elena 14.7 H Plt Count 244 MPV 11.0 Immature Gran % (Auto) 0.3 Neut % (Auto) 68.0 Lymph % (Auto) 19.1 Armstrong % (Auto) 8.7 Eos % (Auto) 2.8 Baso % (Auto) 1.1 Neut # (Auto) 7.38 H Lymph # (Auto) 2.07 Armstrong # (Auto) 0.94 H Eos # (Auto) 0.30 Baso # (Auto) 0.12 Immature Gran # (Auto) 0.03 Sodium 140 Potassium 4.3 Chloride 108 H Carbon Dioxide 25 Anion Gap 7 BUN 16 Creatinine 0.90 Est Cr Clr Drug Dosing 72.4 eGFR 72.28 BUN/Creatinine Ratio 17.8 Glucose 92 Calcium 8.4 L Digoxin 0.8 Diagnostic Findings CXR 10/07/24: FINDINGS: There is interval mild cardiomegaly with mild pulmonary vascular congestion. There are interval small to moderate bilateral pleural effusions and associated lower lung consolidation. No pneumothorax. IMPRESSION: 1. CHF. 2. Bilateral pleural effusions and associated lower lung consolidation. Medications Administered Medication List Apixaban (Apixaban 5 Mg Tablet) 5 mg PO BID [facility] Stop: 11/07/24 10:59 Last Admin: 10/10/24 09:27 Dose: 5 mg Documented By: Admin: 10/09/24 21:08 Dose: 5 mg Documented By: Admin: 10/09/24 08:27 Dose: 5 mg Documented By: Admin: 10/08/24 20:35 Dose: 5 mg Documented By: Admin: 10/08/24 11:35 Dose: 5 mg Documented By: RICHARD Metoprolol Succinate (Metoprolol Succ 50mg Ext Rel Tab) [facility] [place] Stop: 11/09/24 08:59 Last Admin: 10/10/24 09:26 Dose: 200 mg Documented By: ISAK Metoprolol Tartrate (Metoprolol Tartrate 100 Mg Tab) [facility] [place] Stop: 11/08/24 08:59 Last Admin: 10/10/24 09:27 Dose: 100 mg Documented By: Admin: 10/09/24 08:27 Dose: 100 mg Documented By: MARKUS Sacubitril/Valsartan (Valsartan/Sacubitril 26/24mg Tab) 1 tab PO BID [facility] Stop: 11/07/24 20:59 Last Admin: 10/10/24 09:27 Dose: 1 tab Documented By: Admin: 10/09/24 20:14 Dose: 1 tab Documented By: Admin: 10/09/24 08:27 Dose: 1 tab Documented By: Admin: 10/08/24 20:35 Dose: 1 tab Documented By: JORGE Discontinued Medications Albuterol (Albut/Ipratrop 3mg/0.5mg Neb 3 Ml Vial) 3 ml NEB NOW STA; Protocol Stop: 10/08/24 03:57 Last Admin: 10/08/24 04:05 Dose: 3 ml Documented By: [id number] Aspirin (Aspirin 81 Mg Ectab) 81 mg PO DAILY [facility] Stop: 11/07/24 08:59 Last Admin: 10/09/24 08:26 Dose: 81 mg Documented By: Admin: 10/08/24 07:43 Dose: 81 mg Documented By: KTS Digoxin (Digoxin 0.125 Mg Tab) 0.25 mg PO ONE ONE Stop: 10/09/24 13:01 Last Admin: 10/09/24 13:45 Dose: 0.25 mg Documented By: MARKUS Diltiazem HCl (Diltiazem Hcl 5 Mg/Ml 5 Ml Vial) 10 mg IV NOW STA Stop: 10/07/24 10:07 Last Admin: 10/07/24 10:10 Dose: 10 mg Documented By: MARTINA Co-signed By: SUELLEN Furosemide (Furosemide 40 Mg/4 Ml Vial) 40 mg IV NOW STA Stop: 10/07/24 10:52 Last Admin: 10/07/24 12:34 Dose: 40 mg Documented By: AMS Furosemide (Furosemide Inj 20 Mg/2 Ml Vial) 20 mg IV ONE ONE Stop: 10/08/24 09:41 Last Admin: 10/08/24 09:58 Dose: 20 mg Documented By: RICHARD Heparin Sodium (Porcine) (Heparin Sod (Porcine) 1000 Unit/Ml) 4,000 units IV NOW ONE Stop: 10/07/24 11:46 Last Admin: 10/07/24 13:15 Dose: 4,000 units Documented By: AMS Co-signed By: KR Heparin Sodium/Dextrose (Heparin Iv Adult Wt-Based Low-Dose W/ Initial Bolus Protocol) 1 each IV Q15M [facility]; Protocol Stop: 10/07/24 15:15 Last Admin: 10/07/24 20:57 Dose: Not Given Documented By: [facility] Admin: 10/07/24 20:57 Dose: Not Given Documented By: [facility] Admin: 10/07/24 20:56 Dose: Not Given Documented By: [facility] Admin: 10/07/24 20:56 Dose: Not Given Documented By: [facility] Admin: 10/07/24 20:55 Dose: Not Given Documented By: [facility] Admin: 10/07/24 20:55 Dose: Not Given Documented By: [facility] Admin: 10/07/24 20:55 Dose: Not Given Documented By: [facility] Admin: 10/07/24 20:55 Dose: Not Given Documented By: [facility] Admin: 10/07/24 20:55 Dose: Not Given Documented By: [facility] Admin: 10/07/24 20:54 Dose: Not Given Documented By: [facility] Admin: 10/07/24 20:53 Dose: Not Given Documented By: [facility] Admin: 10/07/24 20:53 Dose: Not Given Documented By: Admin: 10/07/24 20:53 Dose: Not Given Documented By: Admin: 10/07/24 20:51 Dose: Not Given Documented By: Admin: 10/07/24 20:50 Dose: Not Given Documented By: LM Diltiazem HCl 125 mg/ Dextrose 125 mls @ 5 mls/hr IV .Q24H [facility]; Protocol Stop: 11/06/24 10:14 Last Titration: 10/08/24 15:16 Dose: Infused Documented By: KTS Co-signed By: DTT Titration: 10/08/24 04:42 Dose: Infused Documented By: LMH Co-signed By: PAH Admin: 10/08/24 04:42 Dose: 5 mg/hr, 5 mls/hr Documented By: LMH Co-signed By: PAH Admin: 10/08/24 00:16 Dose: 5 mg/hr, 5 mls/hr Documented By: JORGE Co-signed By: JRB Titration: 10/08/24 00:16 Dose: Infused Documented By: LMReyna Co-signed By: JRB Titration: 10/07/24 19:07 Dose: 10 mg/hr, 10 mls/hr Documented By: ELICIA Co-signed By: LM Titration: 10/07/24 14:15 Dose: 10 mg/hr, 10 mls/hr Documented By: SOFY Co-signed By: CAP Admin: 10/07/24 10:23 Dose: 5 mg/hr, 5 mls/hr Documented By: MARTINA Co-signed By: SOFY Heparin Sodium/Dextrose (Heparin 69015 Unit/500 Ml D5w) 25,000 units in 500 mls @ 18 mls/hr IV .Q24H [facility]; Protocol Stop: 11/06/24 11:44 Last Titration: 10/08/24 10:29 Dose: Infused Documented By: KTS Co-signed By: DTT Titration: 10/07/24 19:08 Dose: 900 units/hr, 18 mls/hr Documented By: ELICIA Co-signed By: LM Admin: 10/07/24 13:16 Dose: 900 units/hr, 18 mls/hr Documented By: SOFY Co-signed By: KR Digoxin 250 mcg/ Syringe 10 mls @ 2 mls/min IV NOW STA Stop: 10/09/24 10:50 Last Admin: 10/09/24 11:15 Dose: 2 mls/min Documented By: MARKUS Metoprolol Succinate (Metoprolol Succ 50mg Ext Rel Tab) 50 mg PO NOW STA Stop: 10/08/24 10:04 Last Admin: 10/08/24 10:26 Dose: 50 mg Documented By: RICHARD Metoprolol Tartrate (Metoprolol Tartrate 25 Mg Tab) 25 mg PO BID [facility] Stop: 11/06/24 20:59 Last Admin: 10/08/24 07:43 Dose: 25 mg Documented By: Admin: 10/07/24 20:44 Dose: 25 mg Documented By: JORGE Metoprolol Tartrate (Metoprolol Tartrate 25 Mg Tab) 25 mg PO NOW STA Stop: 10/08/24 14:28 Last Admin: 10/08/24 15:18 Dose: 25 mg Documented By: RICHARD Metoprolol Tartrate (Metoprolol Tartrate 1 Mg/Ml Vial) 5 mg IV ONCE PRN PRN Reason: tachycardia Last Admin: 10/09/24 06:03 Dose: 5 mg Documented By: JORGE Metoprolol Tartrate (Metoprolol Tartrate 1 Mg/Ml Vial) Confirm Administered Dose 5 mg IV .STK-MED ONE Stop: 10/09/24 06:00 Last Admin: 10/09/24 06:34 Dose: Not Given Documented By: JORGE Metoprolol Tartrate (Metoprolol Tartrate 100 Mg Tab) 100 mg PO ONE ONE Stop: 10/09/24 21:01 Last Admin: 10/09/24 20:13 Dose: 100 mg Documented By: GANESH Cagle (Stat Iv Infusion Titration Per Protocol) 1 each N/A NOW STA Stop: 10/07/24 10:07 Last Admin: 10/07/24 15:39 Dose: Not Given Documented By: JARRELL Potassium Chloride (Potassium Chloride 10 Meq Tabcr) 40 meq PO NOW STA Stop: 10/08/24 08:10 Last Admin: 10/08/24 08:30 Dose: 40 meq Documented By: RICHARD PG Care Time/CCT Total # of Minutes Spent Total Time Spent with Patient: Total time spent is greater than 50% in coordination of care (as documented) at patient's floor/unit and/or counseling patient:44 Coding [place] [address] SUB INP/OBS CARE 3/50MIN Patient Type Established Medical Decision Making High Complexity Diagnoses Left ventricular dysfunction I51.9 Time Spent (min) 62
--- NOTE | 2024-10-10 11:48 | Anesthesiology Consultation ---
Date of Service October 10, 2024 Assessment & Plan (1) Encounter for pre-operative examination: Chart Review Chart Review: Acceptable Risk for Surgery History Surgery Operation Date: 10/10/24 16:30 Proposed Procedures p Transesophageal Echo - Joe Rodríguez MD s Cardioversion Pig Sticker w/Anesthesia - Joe Rodríguez MD Height/Weight Height: 5 ft 11 in Weight: 78.9 kg Allergies Allergy/AdvReac Type Severity Reaction Status Date / Time latex Allergy Unknown rash Verified 10/07/24 08:13 SURGICAL BANDAGES Allergy Unknown RASH Uncoded 10/07/24 08:13 Medications Home Medications Medication Instructions Recorded Confirmed Last Taken aspirin 81 mg tablet,delayed 81 mg PO DAILY 06/27/22 10/07/24 Unknown release (Baird Aspirin) metoprolol tartrate 25 mg tablet 25 mg PO BID 90 days #180 tabs 07/20/23 10/07/24 Unknown coenzyme Q10 10 mg capsule (Co 10 mg PO BID 01/06/24 10/07/24 Unknown Q-10) apixaban 5 mg tablet (Eliquis) 5 mg PO BID 30 days #60 tabs 10/09/24 Unknown sacubitril 24 mg-valsartan 26 mg 1 tab PO BID 30 days #60 tabs 10/09/24 Unknown tablet (Entresto) Active Medications Generic Name Dose Route Start Last Admin Trade Name Freq PRN Reason Stop Dose Admin Apixaban 5 mg 10/08/24 11:00 10/10/24 09:27 Apixaban 5 Mg Tablet PO 11/07/24 10:59 5 mg BID ROHAN Administration Metoprolol Succinate 200 mg 10/10/24 09:00 10/10/24 09:26 Metoprolol Succ 50mg Ext Rel Tab PO 11/09/24 08:59 200 mg QAM ROHAN Administration Metoprolol Tartrate 100 mg 10/09/24 09:00 10/10/24 09:27 Metoprolol Tartrate 100 Mg Tab PO 11/08/24 08:59 100 mg QAM ROHAN Administration Sacubitril/Valsartan 1 tab 10/08/24 21:00 10/10/24 09:27 Valsartan/Sacubitril 26/24mg Tab PO 11/07/24 20:59 1 tab BID ROHAN Administration Past Medical History Medical History (Updated 10/10/24 @ 11:47 by Grupo Mckeon MD) Pleural effusion Acute systolic CHF (congestive heart failure) Atrial fibrillation with rapid ventricular response Orthostatic hypotension Past Family History Family History Father Diabetes Heart disease Hypertension Lung disease Myocardial infarction Brother Diabetes Hypertension Denies family history of Ovarian cancer Prostate cancer Breast cancer Colorectal cancer Past Surgical History Surgical History H/O ovarian cystectomy History of arthroscopic knee surgery torn meniscus right knee 2008 S/P total abdominal hysterectomy about 1991 for extensive endometriosis Social History Smoking Status: Current every day smoker tobacco type: cigarettes Smoking cigarettes per day: 3 Do You Dip or Chew Tobacco: No Hx Alcohol Use: No alcohol intake frequency: a few times a month Hx Substance Use: No substance use type: does not use Physical Exam Vital Signs Last Vital Signs Temp 36.5 C 10/10/24 08:00 Pulse 108 H 10/10/24 08:00 Resp 18 10/10/24 08:00 BP 113/63 10/10/24 08:00 Pulse Ox 96 10/10/24 08:00 O2 Del Method Room Air 10/10/24 08:00 O2 Flow Rate 3 10/08/24 23:26 Testing Laboratory Results 10/10/24 06:24 10/10/24 06:24 PT 11.7 Seconds (9.0-12.0) 10/07/24 10:00 INR 1.1 (0.9-1.1) 10/07/24 10:00 APTT 26 Seconds (21-31) 10/07/24 10:00 Electrocardiogram Date: 10/07/24 Findings: + AFIB @ (155) Echocardiogram Date: 10/07/24 EF: 20-25% LV Function: dysfunctional (global) Valvular Disease: + MR (mild)
--- NOTE | 2024-10-10 13:19 | Discharge Summary ---
Discharge Summary Date of Service October 10, 2024 Principal Dx & Hospital Course #1 = Principal Diagnosis (1) Atrial fibrillation with rapid ventricular response: (2) Tobacco abuse: (3) Acute systolic CHF (congestive heart failure): (4) Left ventricular dysfunction: (5) Shortness of breath: Plan #Atrial Fibrillation with Rapid Ventricular Response - came in an RVR with what appears to be a subsequent rate related CHFdid not improve on diltiazem drip, metoprolol, or addition of digoxincardioversion done 10/10. Stable for discharge afterwards - metoprolol, Eliquis #Congestive Heart Failure with Reduced Ejection Fraction -Echo obtained (10/07/24) which showed left ventricular dysfunction/severe global hypokinesis of the left ventricle and EF 20-25% -Significant change from prior echo in 2022 -Likely secondary to Afib RVR, lower likelihood this is due to ischemia (outpt cardiology f/u in this regard) -Ordered dose of Lasix on 10/08, hypoxia now resolved and no current oxygen requirement -entresto, rate control, sodium restriction for now #LALO (resolved) -Mild elevation of Cr from 0.88 baseline to 1.27 on admission -Cr today at 0.88, back to baseline #Tobacco Use -Nicotine patch while admitted -Encourage smoking cessation Diet: low sodium VTE Prophylaxis: Eliquis Code Status: Full Code safe/stable for home Admission HPI Per Admitting Provider This is a pleasant 63-year-old female who back in 2022 had an episode of paroxysmal atrial fibrillation. At that time she had a echocardiogram which showed a well-preserved left ventricular ejection fraction. She followed with cardiology with recommendations of daily 81 mg of aspirin. Has been following that protocol. Over the last 2 weeks has been having intermittent shortness of breath and palpitations and cough. She presented to your primary care physician 's office today was in A-fib with RVR. She was directed to the ER for further evaluation and treatment. In the ER her laboratory studies were unremarkable including a negative troponin. Chest x-ray showed pulmonary edema. EKG showed A-fib with RVR in the 150s. Course in the ER she received a bolus of IV Cardizem and commenced on a Cardizem drip. She also received 40 mg of IV Lasix. We are called admit the patient for further evaluation and treatment. We are going to do an echocardiogram. Do serial troponins. With pain cardiology consultation with Dr. Rivera. The patient had aspirin this morning already as well as her oral metoprolol. We will heparinize the patient for primary stroke prophylaxis pending echocardiogram could be switched over to oral anticoagulation. In addition she has been having a cough and a runny nose. Will going to screen her for COVID and influenza and RSV. Updated Medication List Medication Instructions Recorded Confirmed Type aspirin 81 mg tablet,delayed 81 mg PO DAILY 06/27/22 10/07/24 History release ([place] [facility] Asp[facility]in) metoprolol tartrate 25 mg tablet 25 mg PO BID 90 days #180 tabs 07/20/23 10/07/24 Rx coenzyme Q10 10 mg capsule (Co 10 mg PO BID 01/06/24 10/07/24 History Q-10) apixaban 5 mg tablet (Eliquis) 5 mg PO BID 30 days #60 tabs 10/09/24 Rx sacubitril 24 mg-valsartan 26 mg 1 tab PO BID 30 days #60 tabs 10/09/24 Rx tablet (Entresto) metoprolol succinate 50 mg 200 mg (4 x 50 mg) PO QAM #30 tabs 10/10/24 Rx tablet,extended release 24 hr Hospital Stay Data Consultations 10/07/24 10:51 ED Decision to Admit Stat 10/07/24 11:11 Consult Cardiology Routine 10/10/24 11:21 Consult Anesthesiology Routine Procedures Performed Operation Date: 10/10/24 16:30 <No data on this case meets the specified criteria> Pending Results Patient Have Any Pending Studies at Discharge: No Discharge Instructions Given to Patient (Per Discharging Provider) Atrial fibrillation - as we discussed, your atrial fibrillation making your heart race was likely the main culprit landing on the hospital. Because your heart was probably racing faster than you knew for longer than you would have had any reason to know, it led to your heart muscle fatiguing which is almost certainly why you are heart "ejection fraction" (squeeze) is down to about 25% (normal is about 55%). - From there, because your heart was still going too fast to effectively fill with blood in between beats, and because the squeeze was weaker, that led to a "traffic jam" of fluid backing up into your lungs accentuating/amplifying the shortness of breath - while medications alone did not rain in your heart rate, the cardioversion helped improve the situation, and it is now safe to get you home - we will have you continue on the metoprolol succinate 200 mg daily to maintain good rate control. Follow your heart rate randomly a few times a dayat rest it should be less than 100, when you are exerting, it should go up in line with how hard you are working (with probably a maximum of about 150 beats a minute, give or take)if you see your heart rates inappropriately fast to what you are doing, we definitely want you calling your primary care physician or cardiology for further guidance. - To help take strain off of your heart and let it get stronger, we have added Entrestothis is actually 2 medications and 1 pill that helps take a lot of strain off of your heart (if you imagine each heartbeat as a "dumbbell curl" this medicine drastically reduces the "weight of the dumbbell"). Most people do tolerate it well, but because it can lower your blood pressure, you might find feeling weak or dizzy. If this is the case, and it does not get better over a few days as your body gets used to the medicine, then we might need to switch to something a little milder (such as lisinopril or olmesartan). We do recommend the people have lab work checked 1-2 weeks after starting Entresto just to make sure that your body/kidneys are tolerating it well (most people do, but a small percentage of people have a bump in kidney numbers almost like they are dehydratedif we catch this early we simply stop the medicine and everything gets back to normal). - With atrial fibrillation, the main problem is inappropriately racing heart rates, but the secondary problem is that since the top part of the heart is quivering instead of fabio, this can allow a "stagnant pond" in which clots can form, and when these clots form they put people at risk for having a fairly sizable strokethis is why we have started the Eliquis. when people are on medications like Eliquis the stroke risk is almost 0. Of course, being on a blood thinner can make you more prone to bleeding, but usually it is more "nuisance bleeding" such as if you cut your finger or have a nosebleed it may take 10 minutes of pressure to get it stopped. If you have this kind of bleeding and it does not respond to 10 minutes of pressure, then it is probably time to get checked out (the cut might need stitched, the nosebleed might need packed or cauterized), and also if it is bleeding that you cannot put pressure on (which is much more rare, but would be situations like pooping blood or vomiting blood) then we would want you coming right back to the hospital. We see a lot less serious bleeding with medications like Eliquis then with some of the older medicines we used to useI doubt you will run into serious bleeding, but I was like to warn people about what could happen just so you get checked out right away rather than get caught off guard if it were to occur - while I expect your heart to get stronger over time (once your heart rates are controlled, and giving time for the Entresto to let your heart get stronger) right now we should have you eat in a way to prevent excess fluid retentionas we discussed, when our kidneys see sodium they retain water, so if our kidneys see a lot of sodium they retain a lot of water. About 90% of the time if I have a patient with a weaker heart admitted to the hospital for fluid backed up into their lungs, it will trace back to sodium in their diet that they were not aware of. Again, like we discussed, with you this will be a bit of a "moving target" because you appear otherwise young and healthy (which gives margin of error) and I expect your heart to get stronger (which means the strictness of the sodium restriction will probably get less as your heart get stronger)but for now to keep you safe and protect you from fluid retention that would flood your lungs that would land you back in the hospital, I would recommend staying less than 2000 mg of sodium on the day, and less than about 500 mg of sodium in any given serving/any given meal. - As you follow-up with your primary care physician and pharmaceutical service representative, they will check a repeat echocardiogram in a few monthsI would expect to see your heart stronger at that point. - The main symptoms that you should watch for that would get your attention to be evaluated by either your primary care physician or cardiology would really be any recurrence of shortness of breath/new or worse shortness of breath with exertion (exactly like what you were feeling that got your attention this time) to do: - Take medications as prescribed (Eliquis twice a day, Entresto twice a day, metoprolol succinate once a day) - follow-up with your primary care physician in 1 week and cardiology in a few weeks - have lab work (basic metabolic panel) in 1-2 weeks - gradually work your way back to regular activity; pay attention especially to your breathing and get evaluated right away if your breathing seems to be getting worse rather than better - stay strict with low-sodium (less than 2000 mg a day/less than 500 mg at any given serving/meal) until you are directed otherwise as your heart/body gets stronger Total Time Total Time Spent Total Time Spent (In Minutes): >30
--- NOTE | 2024-10-10 13:19 | Billing Data ---
Date of Service October 10, 2024 Coding Level of Care Code 11700 INP/OBS DISCH >30 MIN
[2024-10-10] MEDS ORDERED: LIDOCAINE 2% 2 ML VIAL/AMP(20MG/ML) INFIL ONE (15:16)
[2024-10-10] MEDS ORDERED: PROPOFOL IV EMULSION 10 MG/ML 20 ML VIAL IV ONE (15:16)
[2024-10-10] MEDS ORDERED: PHENYLEPHRINE 100MCG/ML 5ML SYR ONE (17:00)
--- NOTE | 2024-10-10 17:07 | Cardioversion ---
Date of Service October 10, 2024 PG Electrical Cardioversion Rp Electrical Cardioversion Report Procedure performed: Cardioversion Indication: The patient is a 63-year-old woman who presented with persistent atrial fibrillation and rapid ventricular rate. Staff forensic chemist: Joe Rodríguez MD Procedure in detail: The patient was informed of the risks benefits and alternatives to the intended procedure. She understood such which proceed. She was taken to the postanesthesia care unit. A general anesthetic was administered by the Anesthesiology Service. Once appropriately anesthetized, the patient was cardioverted using 200 joules delivered in a biphasic fashion. This returned the patient to sinus rhythm. However, she quickly returned to atrial fibrillation. Another delivery of 200 J did not return her to sinus rhythm and a third delivery of 360 J was applied. This returned her to sinus rhythm for only brief period. The patient tolerated procedure well, there were no immediate complications. Patient was neurologically intact subsequent to the procedure. Impression: Successful cardioversion from atrial fibs to normal sinus rhythm with early return to atrial fibrillation Coding Level of Care Code 08036 CARDIOVERSION, ELECTIVE Additional Codes Electrical Cardioversion Report ([id number])
[2024-10-10] MEDS ORDERED: AMIODARONE IV BOLUS & DRIP IV STA (17:09)
[2024-10-10] MEDS ORDERED: STAT IV Infusion **Titration per Protocol STA (17:09)
[2024-10-10] MEDS ORDERED: 0.2 MICRON FILTER SET 1 EACH IV STA (17:09)
--- NOTE | 2024-10-10 17:19 | Hospitalist Progress Note ---
Date of Service October 10, 2024 Assessment & Plan (1) Atrial fibrillation with rapid ventricular response: (2) Tobacco abuse: (3) Acute systolic CHF (congestive heart failure): (4) Left ventricular dysfunction: (5) Shortness of breath: Plan #Atrial Fibrillation with Rapid Ventricular Response - came in an RVR with what appears to be a subsequent rate related CHFdid not improve on diltiazem drip, metoprolol, or addition of digoxincardioversion done 10/10. unfortunately did not convert - amiodarone started - continue metoprolol, Eliquis #Congestive Heart Failure with Reduced Ejection Fraction -Echo obtained (10/07/24) which showed left ventricular dysfunction/severe global hypokinesis of the left ventricle and EF 20-25% -Significant change from prior echo in 2022 -Likely secondary to Afib RVR, lower likelihood this is due to ischemia (outpt cardiology f/u in this regard) -Ordered dose of Lasix on 10/08, hypoxia now resolved and no current oxygen requirement -entresto, rate control, sodium restriction for now #LALO (resolved) -Mild elevation of Cr from 0.88 baseline to 1.27 on admission -Cr today at 0.88, back to baseline #Tobacco Use -Nicotine patch while admitted -Encourage smoking cessation Diet: low sodium VTE Prophylaxis: Eliquis Code Status: Full Code still in RVR, failed cardioversion, amiodarone started Admission and Anticipated Discharge Date Admission Date: October 07, 2024 Subjective felt good - but HR still up cardioversion today late addendum - failed cardioversion, cardiology started amiodarone Review of Systems Review of Systems: All systems reviewed & are unremarkable except as noted in HPI & below Physical Exam Physical Exam: gen [id number] pleasant nad heent nc at mmm breathing unlabored no accessory muscles good effort skin no rashes no pallor or icterus neuro no focal deficits Results & Data Results & Data Vital Signs (Past 12 Hours) Vital Signs Temp Pulse Pulse Resp BP BP Pulse Ox 10/10/24 17:14 118 H 18 108/59 L 99 10/10/24 16:58 98 F 123 H 17 116/44 L 99 10/10/24 16:25 97.8 F 130 H 18 102/64 93 10/10/24 14:57 98.1 F 68 18 108/77 92 10/10/24 13:01 118 H 04/28/25 12:00 97.7 F 95 H 18 98/63 L 95 10/10/24 08:00 97.7 F 108 H 18 113/63 96 10/10/24 05:44 119 H O2 Del Method 10/10/24 17:14 Room Air 10/10/24 16:58 Room Air 10/10/24 16:25 Room Air 10/10/24 14:57 Room Air 10/10/24 13:01 10/10/24 12:00 Room Air 10/10/24 08:00 Room Air 10/10/24 05:44 PG Care Time/CCT Total # of Minutes Spent Total Time Spent with Patient: Total time spent is greater than 50% in coordination of care (as documented) at patient's floor/unit and/or counseling patient: Coding Level of Care Code 74257 SUB INP/OBS CARE 3/50MIN Diagnoses Atrial fibrillation with rapid ventricular response I48.91 Tobacco abuse Z72.0 Acute systolic CHF (congestive heart failure) I50.21 Left ventricular dysfunction I51.9 Shortness of breath R06.02
--- NOTE | 2024-10-10 17:25 | Anesthesiology Progress Note ---
Date of Service October 10, 2024 Anesthesia Post Procedure Vital Signs Vital Signs: Temp Pulse Pulse Resp BP BP Pulse Ox 10/10/24 17:14 118 H 18 108/59 L 99 10/10/24 16:58 36.6 C 123 H 17 116/44 L 99 10/10/24 16:25 36.6 C 130 H 18 102/64 93 10/10/24 14:57 36.7 C 68 18 108/77 92 10/10/24 13:01 118 H 10/10/24 12:00 36.5 C 95 H 18 98/63 L 95 10/10/24 08:00 36.5 C 108 H 18 113/63 96 10/10/24 05:44 119 H 10/10/24 03:52 36.5 C 121 H 16 101/74 93 10/09/24 23:47 36.6 C 78 16 103/71 93 10/09/24 22:02 114 H 10/09/24 19:54 36.8 C 93 H 17 103/74 93 O2 Del Method 10/10/24 17:14 Room Air 10/10/24 16:58 Room Air 10/10/24 16:25 Room Air 10/10/24 14:57 Room Air 10/10/24 13:01 10/10/24 12:00 Room Air 10/10/24 08:00 Room Air 10/10/24 05:44 10/10/24 03:52 Room Air 10/09/24 23:47 Room Air 10/09/24 22:02 10/09/24 19:54 Room Air Transfer of Care Handoff Completed per policy Notes Mental Status: alert / awake / arousable Patient Amnestic to Procedure: Yes Nausea / Vomiting: adequately controlled Pain: adequately controlled Airway Patency, RR, SpO2: stable & adequate BP & HR: stable & adequate Hydration State: stable & adequate Anesthetic Complications: no major complications apparent and Pt Satisfied with anesthetic care
[2024-10-10] MEDS: AMIODARONE / D5W 150 MG/100 ML BAG IV STA (17:50)
[2024-10-10] MEDS: AMIODARONE / D5W 360 MG/200 ML BAG IV ONE (18:09)
[2024-10-10] MEDS: AMIODARONE / D5W 360 MG/200 ML BAG IV SCH (23:39)
[2024-10-11 07:11] VITALS: TEMP 97.5
[2024-10-11 07:21] LABS: Basophils % (auto) 1.1 %; Eosinophils % (auto) 2.2 %; Hematocrit (blood only) 51.7 % (37.0-47.0); Hemoglobin 17.6 g/dl (12.0-16.0); Immature Granulocytes # (auto) 0.04 K/uL (0.01-0.20); Immature Granulocytes % (auto) 0.4 %; Lymphocytes % (auto) 22.6 %; Mean Corpuscular Hemoglobin 32.2 pg (25.0-34.0); Mean Corpuscular Volume 94.5 fL (80.0-100.0); Mean Platelet Volume 10.5 fL (9.4-12.4); Monocytes % (auto) 8.6 %; Neutrophils # (auto) 6.04 K/uL (1.40-6.50); Neutrophils % (auto) 65.1 %; Platelet Count 265 K/uL (130-400); RDW Coefficient of Variation 14.8 % (11.5-14.5); RDW Standard Deviation 51.2 fL (36.4-46.3); Red Blood Count 5.47 M/uL (4.20-5.40); White Blood Count 9.28 K/ul (4.8-10.8)
--- NOTE | 2024-10-11 10:31 | XRay Report ---
XR chest 2V PA/lateral CLINICAL HISTORY: Shortness of breath. Congestive heart failure. COMPARISON STUDY: Chest radiograph October 07, 2024. FINDINGS: Cardiomegaly is again noted. Edema has resolved. Moderate bilateral pleural effusions with associated bibasilar opacities have improved. There is no pneumothorax. IMPRESSION: 1. Resolution of pulmonary edema. 2. Improvement in moderate bilateral pleural effusions and associated bibasilar opacities which favor atelectasis. ACT 112: Negative or not required by law. Electronically signed by: Axel García M.D. 10/11/2024 10:30 AM
[2024-10-11] MEDS: BENZOCAINE/TETRACAIN/BUTAM 50 APPLN/5 GM CAN EXT ONE (10:32)
--- NOTE | 2024-10-11 10:34 | Cardiology Progress Note ---
Date of Service October 11, 2024 Assessment & Plan (1) Left ventricular dysfunction: Plan Mrs. Hoff is a 63 year old female who was admitted on 10/07/24 with A-Fib with RVR and decompensated systolic CHF. She thinks she has been in A-Fib over the 2 to 3 weeks leading up to this hospitalization because she was experiencing exertional dyspnea and exertional intolerance. Her exertional dyspnea was very pronounced while climbing up stairs. Mrs. Hoff remains in A-Fib but her ventricular response rate is improved. She underwent cardioversion on 10/10/24 -- she was converted to sinus rhythm but reverted early back into A-Fib. Getting Amiodarone loaded and her heart rate has improved. She denies any SOB, MILNER, orthopnea, or PND. No anginal symptoms. No neurologic symptoms suggestive of stroke or mini-stroke. Patient has a Cardiomyopathy with an LVEF of 20% to 25% with mild MR. Cardiomyopathy is likely tachycardia induced. Patient will benefit by restoring her sinus rhythm and controlling her heart rate. Recommend the followin. Continue Metoprolol Succinate ER 200 mg daily. 2. Continue Eliquis 5 mg b.i.d.. 3. Finish IV Amiodarone load, discharge to home on Amiodarone 200 mg b.i.d. x 1 month, then reduce to 200 mg daily. 4. Continue Entresto 24-26 mg b.i.d.. 5. Consider repeat cardioversion vs catheter based therapy in the future. 6 Add Farxiga 10 mg daily insurance covers. We will follow-up with her following discharge. Admission and Anticipated Discharge Date Admission Date: October 07, 2024 Subjective Mrs. Hoff remains in A-Fib but her ventricular response rate is improved. She underwent cardioversion on 10/10/24 -- she was converted to sinus rhythm but reverted early back in A-Fib. Getting Amiodarone loaded and her heart rate has improved. She denies any SOB, MILNER, orthopnea, or PND. No anginal symptoms. No neurologic symptoms suggestive of stroke or mini-stroke. Physical Exam Physical Exam: Blood pressure 111/80, pulse is 88 and irregularly irregular. GENERAL: Patient in no acute distress. HEENT: Head is atraumatic, normocephalic. EOM's intact. Facies symmetric. No perioral cyanosis. NECK: No JVD. JVP is not elevated. Carotid upstrokes are + 2 bilaterally without bruits. CHEST/LUNGS: Absent breath sounds in bilateral bases. CVS: S1 and S2 are irregularly irregular. No murmurs, gallops, or rubs. PMI is nonpalpable. No lifts, heaves, or thrills. No abdominal aortic or renal bruits. ABDOMINAL EXAM: Bowel sounds are present. EXTREMITIES: No clubbing or cyanosis. No edema. Extremities are well perfused. NEUROLOGIC EXAM: Patient is awake, alert, and oriented. Pleasant and cooperative. Answers questions appropriately. Speech is clear. ORAL HEALTH THERAPIST: -- A-fib with V-rates in the 80's to 90' s. Results & Data Vital Signs (Past 12 Hours) Vital Signs Temp Pulse Pulse Resp BP BP Pulse Ox 10/11/24 10:11 100 H 10/11/24 07:10 36.4 C L 80 18 111/80 90 10/11/24 06:00 18 10/11/24 02:58 90 16 111/77 99 10/11/24 02:43 36.7 C 75 16 87/65 L 94 10/10/24 23:22 36.6 C 99 H 18 101/68 93 O2 Del Method 10/11/24 10:11 10/11/24 07:10 Room Air 10/11/24 06:00 10/11/24 02:58 Room Air 10/11/24 02:43 Room Air 10/10/24 23:22 Room Air Laboratory Results Laboratory Results - last 24 hr 10/11/24 10/11/24 10/11/24 07:02 07:04 09:28 WBC 9.28 RBC 5.47 H Hgb 17.6 H Hct 51.7 H MCV 94.5 MCH 32.2 MCHC 34.0 RDW Std Deviation 51.2 H RDW Coeff of Maria Elena 14.8 H Plt Count 265 MPV 10.5 Immature Gran % (Auto) 0.4 Neut % (Auto) 65.1 Lymph % (Auto) 22.6 Craig % (Auto) 8.6 Eos % (Auto) 2.2 Baso % (Auto) 1.1 Neut # (Auto) 6.04 Lymph # (Auto) 2.10 Craig # (Auto) 0.80 H Eos # (Auto) 0.20 Baso # (Auto) 0.10 Immature Gran # (Auto) 0.04 Free T4 Pending Free T3 Pending Medications Administered Medication List Apixaban (Apixaban 5 Mg Tablet) 5 mg PO BID ROHAN Stop: 11/07/24 10:59 Last Admin: 10/11/24 07:57 Dose: 5 mg Documented By: Admin: 10/10/24 21:12 Dose: 5 mg Documented By: Admin: 10/10/24 09:27 Dose: 5 mg Documented By: Admin: 10/09/24 21:08 Dose: 5 mg Documented By: Admin: 10/09/24 08:27 Dose: 5 mg Documented By: Admin: 10/08/24 20:35 Dose: 5 mg Documented By: Admin: 10/08/24 11:35 Dose: 5 mg Documented By: RICHARD Amiodarone HCl/Dextrose (Nexterone / D5w) 360 mg in 200 mls @ 16.667 mls/hr IV .Q12H ROHAN Stop: 11/09/24 23:14 Last Admin: 10/10/24 23:39 Dose: 0.5 mg/min, 16.7 mls/hr Documented By: ROSIE Co-signed By: RAMIRO Metoprolol Succinate (Metoprolol Succ 50mg Ext Rel Tab) 200 mg PO QAM ROHAN Stop: 11/09/24 08:59 Last Admin: 10/11/24 07:55 Dose: 200 mg Documented By: Admin: 10/10/24 09:26 Dose: 200 mg Documented By: ISAK Sacubitril/Valsartan (Valsartan/Sacubitril 26/24mg Tab) 1 tab PO BID ROHAN Stop: 11/07/24 20:59 Last Admin: 10/11/24 07:56 Dose: 1 tab Documented By: Admin: 10/10/24 21:12 Dose: 1 tab Documented By: Admin: 10/10/24 09:27 Dose: 1 tab Documented By: Admin: 10/09/24 20:14 Dose: 1 tab Documented By: Admin: 10/09/24 08:27 Dose: 1 tab Documented By: Admin: 10/08/24 20:35 Dose: 1 tab Documented By: JORGE Discontinued Medications Albuterol (Albut/Ipratrop 3mg/0.5mg Neb 3 Ml Vial) 3 ml NEB NOW STA; Protocol Stop: 10/08/24 03:57 Last Admin: 10/08/24 04:05 Dose: 3 ml Documented By: [id number] Aspirin (Aspirin 81 Mg Ectab) 81 mg PO DAILY [facility] Stop: 11/07/24 08:59 Last Admin: 10/09/24 08:26 Dose: 81 mg Documented By: Admin: 10/08/24 07:43 Dose: 81 mg Documented By: RICHARD Digoxin (Digoxin 0.125 Mg Tab) 0.25 mg PO ONE ONE Stop: 10/09/24 13:01 Last Admin: 10/09/24 13:45 Dose: 0.25 mg Documented By: MARKUS Diltiazem HCl (Diltiazem Hcl 5 Mg/Ml 5 Ml Vial) 10 mg IV NOW STA Stop: 10/07/24 10:07 Last Admin: 10/07/24 10:10 Dose: 10 mg Documented By: MARTINA Co-signed By: SUELLEN Furosemide (Furosemide 40 Mg/4 Ml Vial) 40 mg IV NOW STA Stop: 10/07/24 10:52 Last Admin: 10/07/24 12:34 Dose: 40 mg Documented By: SOFY Furosemide (Furosemide Inj 20 Mg/2 Ml Vial) 20 mg IV ONE ONE Stop: 10/08/24 09:41 Last Admin: 10/08/24 09:58 Dose: 20 mg Documented By: RICHARD Heparin Sodium (Porcine) (Heparin Sod (Porcine) 1000 Unit/Ml) 4,000 units IV NOW ONE Stop: 10/07/24 11:46 Last Admin: 10/07/24 13:15 Dose: 4,000 units Documented By: SOFY Co-signed By: CRISTY Heparin Sodium/Dextrose (Heparin Iv Adult Wt-Based Low-Dose W/ Initial Bolus Protocol) 1 each IV Q15M [facility]; Protocol Stop: 10/07/24 15:15 Last Admin: 10/07/24 20:57 Dose: Not Given Documented By: [facility] Admin: 10/07/24 20:57 Dose: Not Given Documented By: [facility] Admin: 10/07/24 20:56 Dose: Not Given Documented By: [facility] Admin: 10/07/24 20:56 Dose: Not Given Documented By: [facility] Admin: 10/07/24 20:55 Dose: Not Given Documented By: Admin: 10/07/24 20:55 Dose: Not Given Documented By: Admin: 10/07/24 20:55 Dose: Not Given Documented By: [facility] Admin: 10/07/24 20:55 Dose: Not Given Documented By: [facility] Admin: 10/07/24 20:55 Dose: Not Given Documented By: [facility] Admin: 10/07/24 20:54 Dose: Not Given Documented By: [facility] Admin: 10/07/24 20:53 Dose: Not Given Documented By: [facility] Admin: 10/07/24 20:53 Dose: Not Given Documented By: [facility] Admin: 10/07/24 20:53 Dose: Not Given Documented By: [facility] Admin: 10/07/24 20:51 Dose: Not Given Documented By: [facility] Admin: 10/07/24 20:50 Dose: Not Given Documented By: [facility] Diltiazem HCl 125 mg/ Dextrose 125 mls @ 5 mls/hr IV .Q24H [facility]; Protocol Stop: 11/06/24 10:14 Last Titration: 10/08/24 15:16 Dose: Infused Documented By: KTS Co-signed By: DTT Titration: 10/08/24 04:42 Dose: Infused Documented By: LM Co-signed By: PAH Admin: 10/08/24 04:42 Dose: 5 mg/hr, 5 mls/hr Documented By: LM Co-signed By: PAH Admin: 10/08/24 00:16 Dose: 5 mg/hr, 5 mls/hr Documented By: LMReyna Co-signed By: JRChloe Titration: 10/08/24 00:16 Dose: Infused Documented By: LM Co-signed By: JRB Titration: 10/07/24 19:07 Dose: 10 mg/hr, 10 mls/hr Documented By: KJS Co-signed By: LM Titration: 10/07/24 14:15 Dose: 10 mg/hr, 10 mls/hr Documented By: AMS Co-signed By: CAP Admin: 10/07/24 10:23 Dose: 5 mg/hr, 5 mls/hr Documented By: DS Co-signed By: SOFY Heparin Sodium/Dextrose (Heparin 46199 Unit/500 Ml D5w) 25,000 units in 500 mls @ 18 mls/hr IV .Q24H ROHAN; Protocol Stop: 11/06/24 11:44 Last Titration: 10/08/24 10:29 Dose: Infused Documented By: RICHARD Co-signed By: DAVID Titration: 10/07/24 19:08 Dose: 900 units/hr, 18 mls/hr Documented By: ELICIA Co-signed By: [facility] Admin: 10/07/24 13:16 Dose: 900 units/hr, 18 mls/hr Documented By: SOFY Co-signed By: CRISTY Digoxin 250 mcg/ Syringe 10 mls @ 2 mls/min IV NOW STA Stop: 10/09/24 10:50 Last Admin: 10/09/24 11:15 Dose: 2 mls/min Documented By: MARKUS Amiodarone HCl/Dextrose (Nexterone / D5w) 150 mg in 100 mls @ 600 mls/hr IV NOW STA Stop: 10/10/24 17:18 Last Infusion: 10/10/24 18:47 Dose: Infused Documented By: ISAK Co-signed By: ROSIE Admin: 10/10/24 17:50 Dose: 600 mls/hr Documented By: ISAK Co-signed By: DAVID Amiodarone HCl/Dextrose (Nexterone / D5w) 360 mg in 200 mls @ 33.333 mls/hr IV ONE ONE Stop: 10/10/24 23:18 Last Infusion: 10/10/24 23:38 Dose: Infused Documented By: ROSIE Co-signed By: RAMIRO Infusion: 10/10/24 19:06 Dose: 1 mg/min, 33.3 mls/hr Documented By: ISAK Co-signed By: ROSIE Admin: 10/10/24 18:09 Dose: 1 mg/min, 33.3 mls/hr Documented By: DAVID Co-signed By: ISAK Metoprolol Succinate (Metoprolol Succ 50mg Ext Rel Tab) 50 mg PO NOW STA Stop: 10/08/24 10:04 Last Admin: 10/08/24 10:26 Dose: 50 mg Documented By: RICHARD Metoprolol Tartrate (Metoprolol Tartrate 25 Mg Tab) 25 mg PO BID ROHAN Stop: 11/06/24 20:59 Last Admin: 10/08/24 07:43 Dose: 25 mg Documented By: Admin: 10/07/24 20:44 Dose: 25 mg Documented By: JORGE Metoprolol Tartrate (Metoprolol Tartrate 25 Mg Tab) 25 mg PO NOW STA Stop: 10/08/24 14:28 Last Admin: 10/08/24 15:18 Dose: 25 mg Documented By: RICHARD Metoprolol Tartrate (Metoprolol Tartrate 100 Mg Tab) [facility] [place] Stop: 11/08/24 08:59 Last Admin: 10/10/24 09:27 Dose: 100 mg Documented By: Admin: 10/09/24 08:27 Dose: 100 mg Documented By: MARKUS Metoprolol Tartrate (Metoprolol Tartrate 1 Mg/Ml Vial) 5 mg IV ONCE PRN PRN Reason: tachycardia Last Admin: 10/09/24 06:03 Dose: 5 mg Documented By: JORGE Metoprolol Tartrate (Metoprolol Tartrate 1 Mg/Ml Vial) Confirm Administered Dose 5 mg IV .STK-MED ONE Stop: 10/09/24 06:00 Last Admin: 10/09/24 06:34 Dose: Not Given Documented By: JORGE Metoprolol Tartrate (Metoprolol Tartrate 100 Mg Tab) 100 mg PO ONE ONE Stop: 10/09/24 21:01 Last Admin: 10/09/24 20:13 Dose: 100 mg Documented By: GANESH Cagle (Stat Iv Infusion Titration Per Protocol) 1 each N/A NOW Stop: 10/07/24 10:07 Last Admin: 10/07/24 15:39 Dose: Not Given Documented By: JARRELL Potassium Chloride (Potassium Chloride 10 Meq Tabcr) 40 meq PO NOW STA Stop: 10/08/24 08:10 Last Admin: 10/08/24 08:30 Dose: 40 meq Documented By: RICHARD PG Care Time/CCT Total # of Minutes Spent Total Time Spent with Patient: Total time spent is greater than 50% in coordination of care (as documented) at patient's floor/unit and/or counseling patient:36 [place] [address] SUB INP/OBS CARE 3/50MIN Patient Type Established History Detailed Exam Detailed Medical Decision Making High Complexity Diagnoses Left ventricular dysfunction I51.9 Time Spent (min) 56
[2024-10-11 10:56] VITALS: BP 92/64; PULSE 99; RESP 17; O2SAT 96
--- NOTE | 2024-10-11 11:52 | Discharge Summary ---
Discharge Summary Date of Service October 11, 2024 Principal Dx & Hospital Course #1 = Principal Diagnosis (1) Atrial fibrillation, new onset: The patient is now on amiodarone therapy. Cardiology consultation appreciated. She failed attempt at electrical cardioversion. She is now on amiodarone which has been switched to the IV dosing to oral dosing. Heart rate is now controlled. She is now on Eliquis. (2) Acute on chronic systolic CHF (congestive heart failure): Known ejection fraction of 20%. Fortunately she is on room air. Chest x-ray done today, October 11, is improved with resolution of CHF and smaller bilateral pleural effusions (3) Bilateral pleural effusion: Due to underlying CHF. Chest x-ray done today, October 11, looks better. Hopefully, the pleural effusions will eventually resolve completely (4) Tobacco abuse: Smoking cessation instructions given to the patient. Plan Home today, October 11, on Entresto, amiodarone, Eliquis. Follow-up with PCP and cardiology as soon as possible. Discharge Exam General-alert and oriented x3, no fever, no chills HEENT-head atraumatic and normocephalic, pupils equal and reactive to light, extraocular muscles intact Neck-no lymphadenopathy or thyromegaly, trachea midline Chest-diminished breath sounds and dullness at both bases. No inspiratory rales. No rhonchi. No wheezing Cardiac-irregular rhythm. Controlled rate. Normal S1 and S2 Abdomen-normal bowel sounds, no hepatosplenomegaly Extremities-no cyanosis, clubbing, or edema Neuro-cranial nerves II through XII intact, motor and sensory function within normal limits, strength symmetrical, no focal deficits Psych-normal affect, normal mood Discharge Plan Discharge Items Patient Disposition: Home - Self-Care Reason For Visit: ATRIAL FIBRILLATION WITH RAPID VENTRICULAR RESPONS Discharge Diagnosis: afib/RVR, bilateral pleural effusions, acute on chronic systolic CHF Activity: Resume your previous activity Non-emergency contact: Primary Care Provider and Rectifying Attendant Call non-emergency contact if: you have any medication questions Follow-up/Referrals: Bryant Griffith PA-C [Physician [facility]] - 10/25/24 1:30 pm Jany Vargas MD [Primary Care Provider] - Diet: Regular and Low Sodium (2gm) Addtl Attending Provider Instructions: Atrial fibrillation - as we discussed, your atrial fibrillation making your heart race was likely the main culprit landing on the hospital. Because your heart was probably racing faster than you knew for longer than you would have had any reason to know, it led to your heart muscle fatiguing which is almost certainly why you are heart "ejection fraction" (squeeze) is down to about 25% (normal is about 55%). - From there, because your heart was still going too fast to effectively fill with blood in between beats, and because the squeeze was weaker, that led to a "traffic jam" of fluid backing up into your lungs accentuating/amplifying the shortness of breath - while medications alone did not rain in your heart rate, the cardioversion helped improve the situation, and it is now safe to get you home - we will have you continue on the metoprolol succinate 200 mg daily to maintain good rate control. Follow your heart rate randomly a few times a dayat rest it should be less than 100, when you are exerting, it should go up in line with how hard you are working (with probably a maximum of about 150 beats a minute, give or take)if you see your heart rates inappropriately fast to what you are doing, we definitely want you calling your primary care physician or cardiology for further guidance. - To help take strain off of your heart and let it get stronger, we have added Entrestothis is actually 2 medications and 1 pill that helps take a lot of strain off of your heart (if you imagine each heartbeat as a "dumbbell curl" this medicine drastically reduces the "weight of the dumbbell"). Most people do tolerate it well, but because it can lower your blood pressure, you might find feeling weak or dizzy. If this is the case, and it does not get better over a few days as your body gets used to the medicine, then we might need to switch to something a little milder (such as lisinopril or olmesartan). We do recommend the people have lab work checked 1-2 weeks after starting Entresto just to make sure that your body/kidneys are tolerating it well (most people do, but a small percentage of people have a bump in kidney numbers almost like they are dehydratedif we catch this early we simply stop the medicine and everything gets back to normal). - With atrial fibrillation, the main problem is inappropriately racing heart rates, but the secondary problem is that since the top part of the heart is quivering instead of fabio, this can allow a "stagnant pond" in which clots can form, and when these clots form they put people at risk for having a fairly sizable strokethis is why we have started the Eliquis. when people are on medications like Eliquis the stroke risk is almost 0. Of course, being on a blood thinner can make you more prone to bleeding, but usually it is more "nuisance bleeding" such as if you cut your finger or have a nosebleed it may take 10 minutes of pressure to get it stopped. If you have this kind of bleeding and it does not respond to 10 minutes of pressure, then it is probably time to get checked out (the cut might need stitched, the nosebleed might need packed or cauterized), and also if it is bleeding that you cannot put pressure on (which is much more rare, but would be situations like pooping blood or vomiting blood) then we would want you coming right back to the hospital. We see a lot less serious bleeding with medications like Eliquis then with some of the older medicines we used to useI doubt you will run into serious bleeding, but I was like to warn people about what could happen just so you get checked out right away rather than get caught off guard if it were to occur - while I expect your heart to get stronger over time (once your heart rates are controlled, and giving time for the Entresto to let your heart get stronger) right now we should have you eat in a way to prevent excess fluid retentionas we discussed, when our kidneys see sodium they retain water, so if our kidneys see a lot of sodium they retain a lot of water. About 90% of the time if I have a patient with a weaker heart admitted to the hospital for fluid backed up into their lungs, it will trace back to sodium in their diet that they were not aware of. Again, like we discussed, with you this will be a bit of a "moving target" because you appear otherwise young and healthy (which gives margin of error) and I expect your heart to get stronger (which means the strictness of the sodium restriction will probably get less as your heart get stronger)but for now to keep you safe and protect you from fluid retention that would flood your lungs that would land you back in the hospital, I would recommend staying less than 2000 mg of sodium on the day, and less than about 500 mg of sodium in any given serving/any given meal. - As you follow-up with your primary care physician and rectifying attendant, they will check a repeat echocardiogram in a few monthsI would expect to see your heart stronger at that point. - The main symptoms that you should watch for that would get your attention to be evaluated by either your primary care physician or cardiology would really be any recurrence of shortness of breath/new or worse shortness of breath with exertion (exactly like what you were feeling that got your attention this time) to do: - Take medications as prescribed (Eliquis twice a day, Entresto twice a day, met oprolol succinate once a day, amiodarone twice a day. New prescriptions have been sent to [facility] pharmacy on [address]) - follow-up with your primary care physician in 1 week and cardiology in a few weeks - have lab work (basic metabolic panel) in 1-2 weeks - gradually work your way back to regular activity; pay attention especially to your breathing and get evaluated right away if your breathing seems to be getting worse rather than better - stay strict with low-sodium (less than 2000 mg a day/less than 500 mg at any given serving/meal) until you are directed otherwise as your heart/body gets stronger Pending Studies at Discharge: No Stand-Alone Forms: My [facility], Smoking Cessation Medications and DC Order Prescriptions: New Eliquis 5 mg Tablet 5 mg PO BID 30 Days Qty: 60 0RF Entresto 24-26 mg Tablet 1 tab PO BID 30 Days Qty: 60 0RF metoprolol succinate 50 mg Tablet Extended Release 24 Hr 200 mg PO QAM Qty: 30 0RF amiodarone 200 mg tablet 200 mg PO BID Qty: 60 0RF Continued aspirin [[place] Aspirin] 81 mg tablet,delayed release (DR/EC) 81 mg PO DAILY Rx Instructions: 10/07-otc unable to verify coenzyme Q10 [Co Q-10] 10 mg capsule 10 mg PO BID Rx Instructions: 10/07-otc unable to verify Discontinued metoprolol tartrate 25 mg tablet 25 mg PO BID 90 Days Qty: 180 4RF Rx Instructions: filled 07/18/24 90 day supply Discharge Orders: Discharge Order- CHF (Routine); Ordered 10/11/24 Ordered By: Javier Anaya Admission Data Admit Date/Time: 10/07/24 11:12 Attending Provider: Javier Anaya Admit Provider: Wes Gonzalez Primary Care Provider: Jany Vargas Other Providers: Wes Gonzalez; Ahmet Rivera; Janie Prieto; Mary Banks; Ling Warren; Mame Canseco; Grupo Mckeon; Lawrence Johnston; Dez Samayoa; Philip Richards; Stephani Espinoza; Liam Dao; Gianfranco Collazo; Renan Reza; Gabriella Sainz; Hood Swann; Justine Swann; Trace Murillo; Korin Farfan; Drake Acosta; Justina Castillo; Cheli Meyer; Mickey Cano; Renetta Patterson; Aminata Ro; Sherry Michelle; Gladis Ba; Dave Ba V; Rehan Riojas; Mary Harvey; Bradley Matos; Arlene Zavala; Dave Webber; Jasper Sainz; Joe Lopez; Micheline Tee; Alethea Bentley; Dave Smith; Donavan Bustos; Sara Lnog; Fran Quinn; Maryjane Robbins; Ya Tran; Ole Rojas; Dyllan Wylie; Nereida Felix; Dez Chi; Vivian Medina; Mara Cornelius; Narendra Jaramillo; Joe Oquendo; Grupo Jamil Jr; Maria E Haq; Blanca Carroll ALindsay; Elsa Mtz; Mickey Westbrook; Edwin Lundberg; Blanca Knott; Ciro Rene; Inderjit Núñez; Konstantin Ryan; Tavon Gonsalez; Dahlia Flor; Lakesha Sewell; Analy Alicia; Mayelin Lynne; Carine Sawyer; Laura Ramirez; Master Tamez Jr; Danuta Leavitt; Renetta Dennison; Obi Bennett Hospital Stay Data Consultations 10/07/24 10:51 ED Decision to Admit Stat 10/07/24 11:11 Consult Cardiology Routine 10/10/24 11:21 Consult Anesthesiology Routine Procedures Performed Operation Date: 10/10/24 16:30 Actual Procedures p Transesophageal Echo w/Anesthesia - Joe Rodríguez MD s Cardioversion 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 Because your heart was probably racing faster than you knew for longer than you would have had any reason to know, it led to your heart muscle fatiguing which is almost certainly why you are heart "ejection fraction" (squeeze) is down to about 25% (normal is about 55%). - From there, because your heart was still going too fast to effectively fill with blood in between beats, and because the squeeze was weaker, that led to a "traffic jam" of fluid backing up into your lungs accentuating/amplifying the shortness of breath - while medications alone did not rain in your heart rate, the cardioversion helped improve the situation, and it is now safe to get you home - we will have you continue on the metoprolol succinate 200 mg daily to maintain good rate control. Follow your heart rate randomly a few times a dayat rest it should be less than 100, when you are exerting, it should go up in line with how hard you are working (with probably a maximum of about 150 beats a minute, give or take)if you see your heart rates inappropriately fast to what you are doing, we definitely want you calling your primary care physician or cardiology for further guidance. - To help take strain off of your heart and let it get stronger, we have added Entrestothis is actually 2 medications and 1 pill that helps take a lot of strain off of your heart (if you imagine each heartbeat as a "dumbbell curl" this medicine drastically reduces the "weight of the dumbbell"). Most people do tolerate it well, but because it can lower your blood pressure, you might find feeling weak or dizzy. If this is the case, and it does not get better over a few days as your body gets used to the medicine, then we might need to switch to something a little milder (such as lisinopril or olmesartan). We do recommend the people have lab work checked 1-2 weeks after starting Entresto just to make sure that your body/kidneys are tolerating it well (most people do, but a small percentage of people have a bump in kidney numbers almost like they are dehydratedif we catch this early we simply stop the medicine and everything gets back to normal). - With atrial fibrillation, the main problem is inappropriately racing heart rates, but the secondary problem is that since the top part of the heart is quivering instead of fabio, this can allow a "stagnant pond" in which clots can form, and when these clots form they put people at risk for having a fairly sizable strokethis is why we have started the Eliquis. when people are on medications like Eliquis the stroke risk is almost 0. Of course, being on a blood thinner can make you more prone to bleeding, but usually it is more "nuisance bleeding" such as if you cut your finger or have a nosebleed it may take 10 minutes of pressure to get it stopped. If you have this kind of bleeding and it does not respond to 10 minutes of pressure, then it is probably time to get checked out (the cut might need stitched, the nosebleed might need packed or cauterized), and also if it is bleeding that you cannot put pressure on (which is much more rare, but would be situations like pooping blood or vomiting blood) then we would want you coming right back to the hospital. We see a lot less serious bleeding with medications like Eliquis then with some of the older medicines we used to useI doubt you will run into serious bleeding, but I was like to warn people about what could happen just so you get checked out right away rather than get caught off guard if it were to occur - while I expect your heart to get stronger over time (once your heart rates are controlled, and giving time for the Entresto to let your heart get stronger) right now we should have you eat in a way to prevent excess fluid retentionas we discussed, when our kidneys see sodium they retain water, so if our kidneys see a lot of sodium they retain a lot of water. About 90% of the time if I have a patient with a weaker heart admitted to the hospital for fluid backed up into their lungs, it will trace back to sodium in their diet that they were not aware of. Again, like we discussed, with you this will be a bit of a "moving target" because you appear otherwise young and healthy (which gives margin of error) and I expect your heart to get stronger (which means the strictness of the sodium restriction will probably get less as your heart get stronger)but for now to keep you safe and protect you from fluid retention that would flood your lungs that would land you back in the hospital, I would recommend staying less than 2000 mg of sodium on the day, and less than about 500 mg of sodium in any given serving/any given meal. - As you follow-up with your primary care physician and rectifying attendant, they will check a repeat echocardiogram in a few monthsI would expect to see your heart stronger at that point. - The main symptoms that you should watch for that would get your attention to be evaluated by either your primary care physician or cardiology would really be any recurrence of shortness of breath/new or worse shortness of breath with exertion (exactly like what you were feeling that got your attention this time) to do: - Take medications as prescribed (Eliquis twice a day, Entresto twice a day, metoprolol succinate once a day, amiodarone twice a day. New prescriptions have been sent to [facility] pharmacy on ) - follow-up with your primary care physician in 1 week and cardiology in a few weeks - have lab work (basic metabolic panel) in 1-2 weeks - gradually work your way back to regular activity; pay attention especially to your breathing and get evaluated right away if your breathing seems to be getting worse rather than better - stay strict with low-sodium (less than 2000 mg a day/less than 500 mg at any given serving/meal) until you are directed otherwise as your heart/body gets stronger Total Time Total Time Spent Total Time Spent (In Minutes): 45 minutes Coding Level of Care Code 91507 INP/OBS DISCH >30 MIN Diagnoses Atrial fibrillation, new onset I48.91 Acute on chronic systolic CHF (congestive heart failure) I50.23 Bilateral pleural effusion J90 Tobacco abuse Z72.0
--- NOTE | 2024-10-11 12:04 | XCELERA ---
[id number] \\[id number]
[2024-10-11] MEDS: AMIODARONE 200 MG TAB PO ONE (12:16)
[2024-10-11] MEDS ORDERED: AMIODARONE 200 MG TAB PO SCH (17:00)
== END 2024-10-11 13:28 | disposition home or self-care (01) | DRG 308 ==
LOC: ED 09:41 → SUATTDRO 11:12 → EDINP 11:12 → 2S 14:10
DX: Z79.82 Long term (current) use of aspirin; J90 Pleural effusion, not elsewhere classified; I50.43 Acute on chronic combined systolic (congestive) and diastolic (congestive) heart failure; Z79.899 Other long term (current) drug therapy; Z82.49 Family history of ischemic heart disease and other diseases of the circulatory system; I48.0 Paroxysmal atrial fibrillation; Z71.6 Tobacco abuse counseling; Z83.6 Family history of other diseases of the respiratory system; N17.9 Acute kidney failure, unspecified; F17.210 Nicotine dependence, cigarettes, uncomplicated; I42.9 Cardiomyopathy, unspecified; Z91.040 Latex allergy status